=== PATIENT | female | born 1950 | race Caucasian/White ===

== ENCOUNTER 2021-08-07 07:51 | Outpatient (CLI) | payer MEDICARE, SELFPAY | END 2021-08-07 07:52 | disposition home or self-care (01) | LOC: ANHAUDIO 07:53 | PROVIDERS: PCP Family Medicine; Visit Provider Otolaryngology | DX: R42 Dizziness and giddiness (principal) | CPT/HCPCS: 92537; 92540; 92546; 92557; 92567 ==

== ENCOUNTER → 2021-10-10 03:22 | Outpatient (CLI) | payer MEDICARE, SELFPAY ==
[2021-10-15 22:48] LABS: SARS-CoV-2 RNA PCR Negative
== END ==
PROVIDERS: PCP Family Medicine; Visit Provider Family Medicine
DX: R50.9 Fever, unspecified (principal); Z20.822 Contact with and (suspected) exposure to COVID-19
CPT/HCPCS: C9803; U0003; U0005

== ENCOUNTER → 2021-11-05 15:17 | Outpatient (CLI) | payer MEDICARE, SELFPAY ==
--- NOTE | ~2021-11-05 | XR_ITS ---
EXAMINATION: XR lumbar spine min 4V DATE: 11/05/2021 16:11 INDICATION: Low back pain TECHNIQUE: Anteroposterior, lateral, and bilateral oblique views of the lumbar spine, and cone-down l ateral view of the lumbosacral junction were obtained. COMPARISON: None. FINDINGS: There is no fracture, dislocation, or subluxation. The vertebral body heights are maintaine d. There is mild loss of intervertebral disc space height at L4-5 and L5-S1. Small degenerative osteo phytes project from the anterior endplates of multiple vertebral bodies. There is mild facet osteoart hritis of the lower lumbar spine. Calcified atherosclerosis is noted. Surgical clips in the right upp er quadrant are likely from prior cholecystectomy. IMPRESSION: 1. Mild lumbar spondylosis without acute findings. Reviewed, dictated and finalized at location F. DIEM RN
--- NOTE | ~2021-11-05 | XR_ITS ---
EXAMINATION: XR hip BI 2V w AP pelvis DATE: 11/05/2021 16:11 INDICATION: Bilateral hip pain TECHNIQUE: AP view the pelvis and two views of each hip were obtained. COMPARISON: None. FINDINGS: Bone alignment is normal. There is no fracture. There is mild osteoarthritis of the hips. C alcified atherosclerosis is noted. IMPRESSION: 1. 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 Reviewed, dictated and finalized at location F. PLANNER
--- NOTE | ~2021-11-05 | XR_ITS ---
EXAMINATION: XR thoracic spine 3V DATE: 11/05/2021 16:11 INDICATION: Chronic thoracic back pain TECHNIQUE: AP, lateral and lateral swimmer's views of the thoracic spine were obtained. COMPARISON: None. FINDINGS: There is no fracture, dislocation, or subluxation. The vertebral body heights are normal. T here is mild loss of intervertebral disc space height in the midthoracic spine. Small degenerative os teophytes project from the anterior endplates of multiple vertebral bodies. Surgical clips are noted in the left neck. IMPRESSION: 1. Mild thoracic spondylosis without acute findings. Reviewed, dictated and finalized at location F. ATTENDANT
== END ==
PROVIDERS: PCP Family Medicine; Visit Provider Family Medicine
DX: M47.896 Other spondylosis, lumbar region (principal); M47.894 Other spondylosis, thoracic region; M16.0 Bilateral primary osteoarthritis of hip
CPT/HCPCS: 72072; 72110; 73521

== ENCOUNTER 2022-09-01 21:11 | Emergency (ER) | payer MEDICARE, SELFPAY ==
[2022-09-01] VITALS (11 sets, daily range): BP systolic 90–139; BP diastolic 30–65; PULSE 63–101; RESP 16–25; TEMP 36.2–36.7; O2SAT 83–98
--- NOTE | ~2022-09-01 | CT_ITS ---
EXAMINATION: CT abdomen pelvis wo con DATE: 09/01/2022 23:39 INDICATION: Diarrhea, nausea and vomiting TECHNIQUE: Computed tomography (CT) of the abdomen and pelvis was performed without intravenous contr ast. Automated exposure control and iterative reconstruction technique were employed. The dose-length product was 325.11 mGy-cm. COMPARISON: 09/24/2015 FINDINGS: Emphysema at the lung bases. Heart size is normal. Atherosclerotic coronary artery calcification. No pericardial or pleural effusion. Small sliding-type hiatal hernia. Cholecystectomy clips the gallblad angelica fossa. A few tiny splenic calcifications consistent with old granulomatous disease. Liver, pancre as, bilateral adrenal glands and kidneys are normal. There is moderate colonic diverticulosis with de scending and sigmoid colon predominance. There is no adjacent inflammatory change to suggest divertic ulitis. Fluid within multiple nondilated loops of small bowel and in the cecum. Normal appendix. Blad angelica is normal. The uterus is not identified and has likely been surgically resected. No free intraper itoneal gas or fluid. No pathologically enlarged abdominal or pelvic lymphadenopathy. There is calcif ied atherosclerosis of the aorta and many of the other arteries. Mild lumbar spondylosis. IMPRESSION: 1. Are nonspecific fluid in the cecum in a few nondilated loops of small bowel consistent with diarrh ea. Correlate for gastroenteritis. 2. Small sliding-type hiatal hernia. Reviewed, dictated and finalized at location A. ORT REPRESENTATIVE IMPRESSION: 1. Are nonspecific fluid in the cecum in a few nondilated loops of small bowel consistent with diarrhea. Correlate for gastroenteritis. 2. Small sliding-type hiatal hernia.
--- NOTE | 2022-09-01 22:15 | PC.NURSE ---
RN called pt. for triage x3. pt. using the bathroom during every triage
--- NOTE | 2022-09-01 22:18 | ECG_ITS ---
Measurements Intervals [place] Rate: 65 P: 65 IN: 171 QRS: 41 QRSD: 84 T: 61 QT: 390 QTc: 406 Interpretive Statements SINUS RHYTHM INCOMPLETE RIGHT BUNDLE BRANCH BLOCK BASELINE ARTIFACT- I, II, III, AVR, AVL, AVF BORDERLINE ECG NO PREVIOUS ECG AVAILABLE FOR COMPARISON Electronically Signed On 09-02-2022 6:50:00 HOME WORK[employer] by Manuelito Somers D.O.
--- NOTE | 2022-09-01 22:23 | ED.NAVMDI ---
HPI - Nausea/Vomiting/Diarrhea General Chief complaint: Nausea/Vomiting/Diarrhea <Jeanette Asencio PA-C - Last Filed: 09/02/22 03:08> Stated complaint: diarrhea and weakness <Jeanette Asencio PA-C - Last Filed: 09/02/22 03:08> Time Seen by Provider: 09/01/22 22:05 <Jeanette Asencio PA-C - Last Filed: 09/02/22 03:08> History of Present Illness HPI Narrative: Patient is a 72-year-old female here for evaluation of nausea, vomiting and nonbloody diarrhea for the last 2 hours. Patient states that she is unable to tolerate any p.o. and has been vomiting after every trial. Also notes about 10-15 episodes of vomiting nonbloody/nonbilious emesis. Denies any abdominal pain. No recent antibiotic use, new or suspicious foods, sick contacts. Patient states that she had a similar bout of illness about a month and a half without attributed to gastroenteritis, resolved without intervention. No chest pain, shortness of breath, fevers or chills. <Jeanette Asencio PA-C - Last Filed: 09/02/22 03:08> Related Data Allergies/Adverse reactions: Allergies Allergy/AdvReac Type Severity Reaction Status Date / Time KATRINA Inhibitors Allergy Severe WHEEZING Verified 09/01/22 23:38 atorvastatin Allergy Severe MUSCLE Verified 09/01/22 23:38 BREAKDOWN budesonide Allergy Severe BREATHING Verified 09/01/22 23:38 PROBLEMS ezetimibe Allergy Severe MUSCLE Verified 09/01/22 23:38 DETIORATION Iodinated Contrast Media Allergy Severe DIFFICULTY Verified 09/01/22 23:38 BREATHING sertraline Allergy Severe AGGITATION Verified 09/01/22 23:38 telithromycin Allergy Severe VISUAL Verified 09/01/22 23:38 DISTURBANCES ciprofloxacin Allergy Intermediate HIVES AND Verified 09/01/22 23:38 SWELLING doxazosin Allergy Intermediate CONFUSION, Verified 09/01/22 23:38 WHEEZING formoterol Allergy Intermediate BREATHING Verified 09/01/22 23:38 PROBLEMS, AND CONFUSION house dust Allergy Intermediate RUNNY NOSE Verified 09/01/22 23:38 DIFFICULTY BREATHING AND BITES hydrochlorothiazide Allergy Intermediate DIZZINESS Verified 09/01/22 23:38 ibuprofen Allergy Intermediate ELEVATES Verified 09/01/22 23:38 BLOOD PRESSURE montelukast Allergy Intermediate CONFUSION Verified 09/01/22 23:38 sulfamethoxazole Allergy Intermediate HIVES AND Verified 09/01/22 23:38 SWELLING trimethoprim Allergy Intermediate HIVES AND Verified 09/01/22 23:38 SWELLING cefuroxime Allergy Mild DIARRHEA Verified 09/01/22 23:38 sulfamethizole Allergy Unknown Unknown Verified 09/01/22 23:38 diazepam AdvReac Intermediate CONFUSION Verified 09/01/22 23:38 Wasp Allergy Severe SWELLING, Uncoded 10/16/21 08:53 BLISTERS AT THE SITE Cat Dander Allergy Mild RUNNY NOSE Uncoded 10/16/21 08:53 STEROIDS AdvReac Intermediate EYE Uncoded 10/16/21 08:53 SWELLING <Jeanette Asencio PA-C - Last Filed: 09/02/22 03:08> Review of Systems Review of Systems: Gen: Denies fevers or chills Eyes: Denies eye pain or visual change ENT: Denies congestion Respiratory: Denies shortness of breath or cough CV: Denies chest pain or palpitations GI: Reports nausea, vomiting and diarrhea. Denies abdominal pain : denies burning, urgency, frequency or hematuria Musculoskeletal: Denies back pain or muscle pain Neuro: Denies numbness, tingling, weakness or focal weakness Skin: Denies rash Except as documented, all other systems reviewed and negative <Jeanette Asencio PA-C - Last Filed: 09/02/22 03:08> [facility] Family History Family History: Family History (System 10/16/21 @ 08:53 by Neida Castellanos) Mother Hypertension Family history of malignant neoplasm Grandparent Hypertension Sibling Hypertension Family history of malignant neoplasm of skin Father Family history of heart disease in male family member before age 55 Other Family history of cardiovascular disease <Jeanette
[2022-09-01 22:37] LABS: Basophils Absolute Auto 0.1 K/mm3 (0.0-0.1); Basophils Percent Auto 0.5 % (0.2-1.2); Eosinophils Absolute Auto 0.2 K/mm3 (0-0.3); Eosinophils Percent Auto 1.6 % (0-4.4); Hematocrit 40.7 % (37.0-47.0); Hemoglobin 13.3 g/dL (12.0-15.0); Immature Granulocyte Absolute 0.04 K/mm3 (0.00-0.031); Immature Granulocyte Percent A 0.3 % (0-0.5); Lymphocytes Absolute Auto 1.27 K/mm3 (0.9-3.2); Lymphocytes Percent Auto 10.6 % (18.3-44.2); Mean Corpuscular HGB Conc 32.7 g/dl (32-36); Mean Corpuscular Hemoglobin 31.4 pg (26-34); Mean Corpuscular Volume 96.2 fl (80-100); Mean Platelet Volume 9.1 fl (7.4-10.4); Monocytes Absolute Auto 0.5 K/mm3 (0.1-0.6); Monocytes Percent Auto 3.7 % (2.6-8.5); Neutrophils Percent Auto 83.3 % (45.5-73.1); Platelet Count Result 350 k/mm3 (150-375); Red Blood Count 4.23 M/mm3 (4.2-5.4); Red Cell Distribution Width 12.7 % (11.5-14.5)
[2022-09-01] MEDS: SODIUM CHLORIDE 0.9% IV 1,000 ML 999 ML IV CONT ×2 (22:42→23:48)
[2022-09-01] MEDS: ONDANSETRON INJ 4 MG/2 ML VIAL IV PUSH (22:43)
[2022-09-01 22:51] LABS: Lactic Acid Reflex 2.3 mmol/L (0.7-2.0)
[2022-09-01 22:52] LABS: Alanine Aminotransferase 20 U/L (6-35); Albumin Level 4.4 g/dL (3.5-5.1); Alkaline Phosphatase 163 U/L (38-126); Anion Gap 17 mmol/L (8-16); Aspartate Amino Transferase 31 U/L (14-36); Bilirubin,Total 0.4 mg/dL (0.2-1.3); Blood Urea Nitrogen 13 mg/dL (7-17); Calcium 9.2 mg/dL (8.4-10.2); Carbon Dioxide 23 mmol/L (22-30); Chloride 95 mmol/L (98-107); Estimated Glomerular Filt Rate 44; Glucose 131 mg/dL (65-110); Lipase 116 U/L (23-300); Potassium 3.2 mmol/L (3.4-5.0); Sodium 135 mmol/L (137-145)
[2022-09-01] MEDS: POTASSIUM CHLORIDE 20 MEQ TABLET PO (23:44)
[2022-09-02] VITALS (15 sets, daily range): BP systolic 97–137; BP diastolic 46–61; PULSE 73–117; RESP 19–30; O2SAT 87–93
[2022-09-02 00:06] LABS: Influenza A QL RT-PCR Negative (Negative); Influenza B QL RT-PCR Negative (Negative); SARS-CoV-2 RNA PCR Negative
[2022-09-02 00:25] LABS: Add Urine Microscopic? YES; Appearance Urine Clear (Clear); Bilirubin Urine Negative (Negative); Blood Urine Negative (Negative); Color Urine Yellow (Yellow); Glucose Urine UA Negative (Negative); Ketones Urine Negative (Negative); Leukocyte Esterase Ur Negative LEU/UL (Negative); Nitrate Urine Negative (Negative); Protein Urine 1+ mg/dL (Negative); Specific Grav Ur 1.015 (1.001-1.035); Urobilinogen Urine 0.2 mg/dL (<2.0); pH Urine 6.5 (5.0-9.0)
[2022-09-02 00:36] LABS: Hyaline Casts Urine 15-19 /lpf; Mucus Urine Rare /lpf; RBC Urine 0-2 /hpf (0-2); Squamous Epithelial Cell Urine Rare /hpf (Few)
[2022-09-02 01:35] LABS: Reflex Lactic Acid Yes or No Add Lactic
[2022-09-02 01:49] LABS: Magnesium 1.6 mg/dL (1.6-2.3)
[2022-09-02 02:41] LABS: Lactic Acid Reflex 1.2 mmol/L (0.7-2.0)
== END 2022-09-02 03:03 | disposition home or self-care (01) ==
PROVIDERS: Physician Assistant; Emergency Provider Emergency Medicine; PCP Family Medicine
DX: K52.9 Noninfective gastroenteritis and colitis, unspecified (principal); Z20.822 Contact with and (suspected) exposure to COVID-19; F17.200 Nicotine dependence, unspecified, uncomplicated
CPT/HCPCS: 36415; 74176; 80053; 81001; 83605; 83690; 83735; 85025; 87502; 93005; 96361; 96374; 99284; A9270; J2405; J7030; U0003; U0005

== ENCOUNTER 2022-11-01 12:22 | Emergency (ER) | payer MEDICARE, SELFPAY ==
[2022-11-01 12:35] VITALS: BP 166/57; PULSE 84; RESP 16; TEMP 36.9; O2SAT 99
--- NOTE | 2022-11-01 12:47 | ED.URI ---
HPI - URI/Sore Throat General Chief Complaint: Upper Respiratory Infection Stated Complaint: EARS POPPING/SINUS CONGESITON/DRAINAGE Time Seen by Provider: 11/01/22 13:15 Source: patient and RN notes reviewed Mode of arrival: ambulatory Limitations: no limitations History of Present Illness HPI Narrative: 72-year-old female with history of COPD presents concern for 2 week history of sinus congestion, drainage, pressure, pain. She reports it feels like it is moving to her chest and flank is getting stuck in her throat. She reports she is unable to use her CPAP machine effectively. Reports using Flonase without relief. MD elicited complaint: cough, nasal congestion and sinus pain Related Data Home Medications Medication Instructions Recorded Confirmed amlodipine 5 mg tablet 5 mg PO DAILY 11/01/22 11/01/22 ergocalciferol (vitamin D2) 1,250 1,250 mcg PO DIRECTED 11/01/22 11/01/22 mcg (50,000 unit) capsule ezetimibe 10 mg tablet 10 mg PO DAILY 11/01/22 11/01/22 lansoprazole 15 mg capsule,delayed 15 mg PO DAILY 11/01/22 11/01/22 release levothyroxine 25 mcg tablet 25 mcg PO DAILY 11/01/22 11/01/22 montelukast 10 mg tablet 10 mg PO DAILY 11/01/22 11/01/22 telmisartan 80 mg tablet 80 mg PO DAILY 11/01/22 11/01/22 triamcinolone acetonide 0.1 % 1 applic topical DIRECTED 11/01/22 11/01/22 topical ointment Allergies Allergy/AdvReac Type Severity Reaction Status Date / Time KATRINA Inhibitors Allergy Severe WHEEZING Verified 11/01/22 13:00 atorvastatin Allergy Severe MUSCLE Verified 11/01/22 13:00 BREAKDOWN budesonide Allergy Severe BREATHING Verified 11/01/22 13:00 PROBLEMS ezetimibe Allergy Severe MUSCLE Verified 11/01/22 13:00 DETIORATION Iodinated Contrast Media Allergy Severe DIFFICULTY Verified 11/01/22 13:00 BREATHING sertraline Allergy Severe AGGITATION Verified 11/01/22 13:00 telithromycin Allergy Severe VISUAL Verified 11/01/22 13:00 DISTURBANCES ciprofloxacin Allergy Intermediate HIVES AND Verified 11/01/22 13:00 SWELLING doxazosin Allergy Intermediate CONFUSION, Verified 11/01/22 13:00 WHEEZING formoterol Allergy Intermediate BREATHING Verified 11/01/22 13:00 PROBLEMS, AND CONFUSION house dust Allergy Intermediate RUNNY NOSE Verified 11/01/22 13:00 DIFFICULTY BREATHING AND BITES hydrochlorothiazide Allergy Intermediate DIZZINESS Verified 11/01/22 13:00 ibuprofen Allergy Intermediate ELEVATES Verified 11/01/22 13:00 BLOOD PRESSURE montelukast Allergy Intermediate CONFUSION Verified 11/01/22 13:00 sulfamethoxazole Allergy Intermediate HIVES AND Verified 11/01/22 13:00 SWELLING trimethoprim Allergy Intermediate HIVES AND Verified 11/01/22 13:00 SWELLING cefuroxime Allergy Mild DIARRHEA Verified 11/01/22 13:00 sulfamethizole Allergy Unknown Unknown Verified 11/01/22 13:00 diazepam AdvReac Intermediate CONFUSION Verified 11/01/22 13:00 Wasp Allergy Severe SWELLING, Uncoded 11/01/22 13:00 BLISTERS AT THE SITE Cat Dander Allergy Mild RUNNY NOSE Uncoded 11/01/22 13:00 STEROIDS AdvReac Intermediate EYE Uncoded 11/01/22 13:00 SWELLING Review of Systems Review of Systems: CONSTITUTIONAL: Reports malaise. Denies chills, sweats, or fever. EYES: Denies visual changes, redness, or discharge. ENT: Reports rhinorrhea, congestion, sinus pain. Denies otalgia and sore throat. CARDIOVASCULAR: Denies chest pain, palpitations, or edema. RESPIRATORY: Reports cough. Denies dyspnea. GASTROINTESTINAL: Denies abdominal pain, nausea, vomiting, diarrhea SKIN: Denies rash or itching. MUSCULOSKELETAL: Denies myalgia. NEUROLOGIC: Denies headache. All systems reviewed & are unremarkable except as noted in HPI and below PMFSH Family History Family History (System 10/16/21 @ 08:53 by Neida Castellanos) Mother Hypertension Family history of malignant neoplasm Grandparent Hypertension Sibling Hypertension Family history of malignant
== END 2022-11-01 13:33 | disposition home or self-care (01) ==
PROVIDERS: Emergency Provider Nurse Practitioner; PCP Family Medicine
DX: J01.90 Acute sinusitis, unspecified (principal); F17.200 Nicotine dependence, unspecified, uncomplicated; J44.9 Chronic obstructive pulmonary disease, unspecified
CPT/HCPCS: 99213; G0463

== ENCOUNTER → 2022-12-30 12:35 | Outpatient (CLI) | payer MEDICARE, SELFPAY ==
--- NOTE | ~2022-12-30 | MM_ITS ---
EXAMINATION: MM screening [facility] BI w shara HISTORY: Screening mammogram TECHNIQUE: Craniocaudal and mediolateral oblique 3-D tomosynthesis images were obtained and synthetic 2-D images were generated. CAD analysis was submitted and interpreted. COMPARISON: 01/06/2019, 10/23/2017, 01/02/2008 BREAST PARENCHYMAL COMPOSITION: There are scattered areas of fibroglandular density. FINDINGS: No suspicious mass, calcification, or architectural distortion are identified in either oly ast to suggest malignancy. There has been no suspicious interval change. IMPRESSION: 1. No mammographic evidence of malignancy. 2. Recommend routine screening mammography in one year. BI-RADS Category 1: Negative Reviewed, dictated and finalized at location A. F OF ANESTHESIOLOGY
--- NOTE | ~2022-12-30 | DEXA_ITS ---
Bone Density Report Name: SINDY SANTOS Age: 72 Sex: Female Ethnicity: White Date of : 1950 Indication: osteopenia; parental hip fracture; height loss; prior fracture; hysterectomy; postmenopausal Referring Provider: NOEL EASLEY Study: Bone densitometry was performed. Exam Date: December 30, 2022 Accession number: [id number] Bone Density: Region BMD T-score Z-score Classification AP Spine (L1-L4) 0.769 -2.5 -0.3 Osteoporosis Femoral Neck (Left) 0.512 -3.0 -1.1 Osteoporosis Total Hip (Left) 0.665 -2.3 -0.6 Osteopenia Femoral Neck (Right) 0.591 -2.3 -0.4 Osteopenia Total Hip (Right) 0.648 -2.4 -0.8 Osteopenia Total Hip Mean 0.657 -2.4 -0.7 Osteopenia World Health Organization criteria for BMD impression classify patients as: Normal (T-score at or above -1.0), Osteopenia (T-score between -1.0 and -2.5), or Osteoporosis (T-score at or below -2.5). 10-year Fracture Risk: FRAX not reported because: Some T-score for Spine Total or Hip Total or Femoral Neck at or below -2.5 Prior hip or vertebral fracture Previous Exams: Region Exam Age BMD T-score BMD Change BMD Change Date g/cm2 vs Baseline vs Previous AP Spine(L1-L4) 12/30/2022 72 0.769 -2.5 -0.052* -0.052* 10/23/2017 67 0.821 -2.1 Total Hip(Left) 12/30/2022 72 0.665 -2.3 -0.076* -0.076* 10/23/2017 67 0.742 -1.6 Total Hip(Right) 12/30/2022 72 0.648 -2.4 -0.071* -0.071* 10/23/2017 67 0.720 -1.8 *Denotes significance at 95% confidence level, LSC for AP Spine = 0.022 g/cm2, LSC for Total Hip = 0.027 g/cm2 Clinical Information Provided by Patient: Have had a previous hip or vertebral fracture Has had a low trauma fracture Parent has had a hip fracture Smokes Has used the following medications: Vitamin D, Calcium, MTV Has the following medical conditions: Hysterectomy, asthma-no meds, COPD Patient maximum height was 62 Menopause Age: 53 No regular weight bearing exercise Does not regularly consume dairy products Drinks caffeinated beverages Onset of menses at age 18 Number of children 1 Impression: The patient has established osteoporosis, based on the Left Femoral Neck T-score and the existence of a prior fracture. The patient has risk factors, including: parental hip fracture, smoking, previous fracture. The BMD for the AP Spine(L1-L4) decreased, changing by -0.052 since the last DXA exam. The BMD for the Total Hip(Left) decr
== END ==
PROVIDERS: PCP Family Medicine; Visit Provider Obstetrics & Gynecology Gynecology
DX: Z12.31 Encounter for screening mammogram for malignant neoplasm of breast (principal); M85.88 Other specified disorders of bone density and structure, other site; Z78.0 Asymptomatic menopausal state; M81.0 Age-related osteoporosis without current pathological fracture; M85.852 Other specified disorders of bone density and structure, left thigh; M85.851 Other specified disorders of bone density and structure, right thigh
CPT/HCPCS: 77063; 77067; 77080

== ENCOUNTER 2023-11-15 09:33 | Emergency (ER) | payer MEDICARE, SELFPAY ==
[2023-11-15 09:43] VITALS: BP 168/67; PULSE 79; RESP 16; TEMP 37.1; O2SAT 98
[2023-11-15 09:45] VITALS: BP 168/67; PULSE 79; RESP 16; TEMP 37.1; O2SAT 98
--- NOTE | 2023-11-15 09:58 | ED.URI ---
HPI - URI/Sore Throat General Chief Complaint: Upper Respiratory Infection Stated Complaint: Sinus Infection Symptons Time Seen by Provider: 11/15/23 09:51 Source: patient and RN notes reviewed Mode of arrival: ambulatory Limitations: no limitations History of Present Illness HPI Narrative: Patient presents today requesting a change in an antibiotic. She has been having sinus symptoms with congestion and sinus pressure x4 days. 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 Patient states she is unable to take Augmentin due to diarrhea and reflux symptoms when she takes it, but states she is able to take plain amoxicillin. Due to impending bad weather, she does not want to wait till tomorrow to call her tank builder supervisor to have this changed, so she is requesting a prescription for amoxicillin be sent in for her today. Related Data Home Medications Medication Instructions Recorded Confirmed albuterol sulfate 90 mcg/actuation 1 inh inhalation Q4H PRN Shortness 01/26/23 11/15/23 aerosol inhaler Of Breath Or Wheezing famotidine 20 mg tablet 20 mg PO DAILY 01/26/23 11/15/23 Allergies Allergy/AdvReac Type Severity Reaction Status Date / Time KATRINA Inhibitors Allergy Severe WHEEZING Verified 11/15/23 09:43 atorvastatin Allergy Severe MUSCLE Verified 11/15/23 09:43 BREAKDOWN budesonide Allergy Severe BREATHING Verified 11/15/23 09:43 PROBLEMS ezetimibe Allergy Severe MUSCLE Verified 11/15/23 09:43 DETIORATION Iodinated Contrast Media Allergy Severe DIFFICULTY Verified 11/15/23 09:43 BREATHING prednisone Allergy Severe Anxiety Verified 11/15/23 09:43 sertraline Allergy Severe AGGITATION Verified 11/15/23 09:43 telithromycin Allergy Severe VISUAL Verified 11/15/23 09:43 DISTURBANCES venom-wasp Allergy Severe severe Verified 11/15/23 09:43 skin irritation ciprofloxacin Allergy Intermediate HIVES AND Verified 11/15/23 09:43 SWELLING doxazosin Allergy Intermediate CONFUSION, Verified 11/15/23 09:43 WHEEZING formoterol Allergy Intermediate BREATHING Verified 11/15/23 09:43 PROBLEMS, AND CONFUSION house dust Allergy Intermediate RUNNY NOSE Verified 11/15/23 09:43 DIFFICULTY BREATHING AND BITES hydrochlorothiazide Allergy Intermediate DIZZINESS Verified 11/15/23 09:43 ibuprofen Allergy Intermediate ELEVATES Verified 11/15/23 09:43 BLOOD PRESSURE montelukast Allergy Intermediate CONFUSION Verified 11/15/23 09:43 sulfamethoxazole Allergy Intermediate HIVES AND Verified 11/15/23 09:43 SWELLING trimethoprim Allergy Intermediate HIVES AND Verified 11/15/23 09:43 SWELLING cefuroxime Allergy Mild DIARRHEA Verified 11/15/23 09:43 cat dander Allergy Unknown Unknown Verified 11/15/23 09:43 grass pollen Allergy Unknown Unknown Verified 11/15/23 09:43 house dust mite Allergy Unknown Unknown Verified 11/15/23 09:43 mold Allergy Unknown Unknown Verified 11/15/23 09:43 sulfamethizole Allergy Unknown Unknown Verified 11/15/23 09:43 tree and shrub pollen Allergy Unknown Unknown Verified 11/15/23 09:43 diazepam AdvReac Intermediate CONFUSION Verified 11/15/23 09:43 Review of Systems Review of Systems: CONSTITUTIONAL: Denies body aches, fever, chills, or sweats. EYES: Denies visual changes, redness, or discharge. ENT: Denies rhinorrhea, sore throat, or otalgia.+ nasal congestion, sinus pressure CARDIOVASCULAR: Denies chest pain, palpitations, or edema. RESPIRATORY: Denies cough or dyspnea. GASTROINTESTINAL: Denies abdominal pain, nausea, vomiting, or diarrhea. GENITOURINARY: Denies dysuria or hematuria. SKIN: Denies rash, itching, or wounds. MUSCULOSKELETAL: Denies back pain, joint pain, or myalgia. NEUROLOGIC: Denies headache, numbness, tingling, or weakness. PSYCH: Denies depression or anxiety. [facility] Past Medical History Medical History (Reviewed 11/15/23 @ 1
== END 2023-11-15 10:04 | disposition home or self-care (01) ==
PROVIDERS: Emergency Provider Nurse Practitioner; PCP Student in an Organized Health Care Education/Training Program
DX: R09.81 Nasal congestion (principal); F17.210 Nicotine dependence, cigarettes, uncomplicated; M19.90 Unspecified osteoarthritis, unspecified site; J44.9 Chronic obstructive pulmonary disease, unspecified; I25.10 Atherosclerotic heart disease of native coronary artery without angina pectoris; M79.7 Fibromyalgia; K21.9 Gastro-esophageal reflux disease without esophagitis; I10 Essential (primary) hypertension; M81.0 Age-related osteoporosis without current pathological fracture; I73.9 Peripheral vascular disease, unspecified; Z86.73 Personal history of transient ischemic attack (TIA), and cerebral infarction without residual deficits; Z86.2 Personal history of diseases of the blood and blood-forming organs and certain disorders involving the immune mechanism; Z95.5 Presence of coronary angioplasty implant and graft
CPT/HCPCS: 99213; G0463

== ENCOUNTER 2024-05-12 15:14 | Outpatient (CLI) | payer MEDICARE, SELFPAY ==
--- NOTE | ~2024-05-12 | MM_ITS ---
EXAMINATION: MM screening [facility] BI w shara HISTORY: Screening TECHNIQUE: Craniocaudal and mediolateral oblique 3-D tomosynthesis images were obtained and synthetic 2-D images were generated. CAD analysis was submitted and interpreted. COMPARISON: Comparison to multiple prior studies sequentially, with oldest reviewed study dated 09/26. BREAST PARENCHYMAL COMPOSITION: Not dense: There are scattered areas of fibroglandular density. FINDINGS: There is no evidence of suspicious mass, calcification, or architectural distortion to sugg est malignancy in either breast. There has been no suspicious interval change. IMPRESSION: 1. No mammographic evidence of malignancy. 2. Recommend routine screening mammography in one year. BI-RADS Category 1: Negative Reviewed, dictated and finalized at location B.
== END 2024-05-12 15:15 ==
PROVIDERS: PCP Registered Nurse; Visit Provider Obstetrics & Gynecology Gynecology
DX: Z12.31 Encounter for screening mammogram for malignant neoplasm of breast (principal)
CPT/HCPCS: 77063; 77067

== ENCOUNTER 2024-07-31 11:01 | Emergency (ER) | payer MEDICARE, SELFPAY ==
[2024-07-31 11:32] VITALS: BP 171/58; PULSE 87; RESP 16; TEMP 37; O2SAT 97
--- NOTE | 2024-07-31 11:36 | ED.EAR ---
HPI - Ear Problem General Chief complaint: Ear Stated complaint: EARACHE/SINUS CONGESTION Source: patient Mode of arrival: ambulatory Limitations: no limitations History of Present Illness HPI Narrative: Patient presents for evaluation of right-sided ear pain. She indicates over the last week she has experience sinus congestion, clear rhinorrhea, and a sandpaper throat . No fever, chills, nausea, vomiting, diarrhea. No recent sick contacts to her knowledge. She is not taking any medication to assist with her symptoms. She smokes 3/4 ppd. Related Data Home Medications Medication Instructions Recorded Confirmed albuterol sulfate 90 mcg/actuation 1 inh inhalation Q4H PRN Shortness 01/26/23 07/31/24 aerosol inhaler Of Breath Or Wheezing famotidine 20 mg tablet 20 mg PO DAILY 01/26/23 06/01/24 montelukast 10 mg tablet 10 mg PO DAILY 05/11/24 07/31/24 Allergies Allergy/AdvReac Type Severity Reaction Status Date / Time KATRINA Inhibitors Allergy Severe WHEEZING Verified 07/31/24 11:45 atorvastatin Allergy Severe MUSCLE Verified 07/31/24 11:45 BREAKDOWN budesonide Allergy Severe BREATHING Verified 07/31/24 11:45 PROBLEMS ezetimibe Allergy Severe MUSCLE Verified 07/31/24 11:45 DETIORATION Iodinated Contrast Media Allergy Severe DIFFICULTY Verified 07/31/24 11:45 BREATHING prednisone Allergy Severe Anxiety Verified 07/31/24 11:45 sertraline Allergy Severe AGGITATION Verified 07/31/24 11:45 telithromycin Allergy Severe VISUAL Verified 07/31/24 11:45 DISTURBANCES venom-wasp Allergy Severe severe Verified 07/31/24 11:45 skin irritation ciprofloxacin Allergy Intermediate HIVES AND Verified 07/31/24 11:45 SWELLING doxazosin Allergy Intermediate CONFUSION, Verified 07/31/24 11:45 WHEEZING formoterol Allergy Intermediate BREATHING Verified 07/31/24 11:45 PROBLEMS, AND CONFUSION house dust Allergy Intermediate RUNNY NOSE Verified 07/31/24 11:45 DIFFICULTY BREATHING AND BITES hydrochlorothiazide Allergy Intermediate DIZZINESS Verified 07/31/24 11:45 ibuprofen Allergy Intermediate ELEVATES Verified 07/31/24 11:45 BLOOD PRESSURE montelukast Allergy Intermediate CONFUSION Verified 07/31/24 11:45 sulfamethoxazole Allergy Intermediate HIVES AND Verified 07/31/24 11:45 SWELLING trimethoprim Allergy Intermediate HIVES AND Verified 07/31/24 11:45 SWELLING cefuroxime Allergy Mild DIARRHEA Verified 07/31/24 11:45 cat dander Allergy Unknown Unknown Verified 07/31/24 11:45 grass pollen Allergy Unknown Unknown Verified 07/31/24 11:45 house dust mite Allergy Unknown Unknown Verified 07/31/24 11:45 mold Allergy Unknown Unknown Verified 07/31/24 11:45 sulfamethizole Allergy Unknown Unknown Verified 07/31/24 11:45 tree and shrub pollen Allergy Unknown Unknown Verified 07/31/24 11:45 amoxicillin [From Augmentin] Allergy Other Verified 07/31/24 11:45 clavulanic acid Allergy Other Verified 07/31/24 11:45 [From Augmentin] diazepam AdvReac Intermediate CONFUSION Verified 07/31/24 11:45 Review of Systems Review of Systems: CONSTITUTIONAL: Denies fever, chills, or sweats. EYES: Denies visual changes, redness, or discharge. ENT: Reports right-sided otalgia, sinus congestion, clear rhinorrhea, and sandpaper throat CARDIOVASCULAR: Denies chest pain, palpitations, or edema. RESPIRATORY: Denies cough or dyspnea. GASTROINTESTINAL: Denies abdominal pain, nausea, vomiting, or diarrhea. GENITOURINARY: Denies dysuria or hematuria. SKIN: Denies rash or itching. MUSCULOSKELETAL: Denies back pain, joint pain, or myalgia. NEUROLOGIC: Denies headache, numbness, dizziness, or weakness. PSYCHIATRIC: Denies anxiety or depression. [facility] Past Medical History Medical History Allergies Anxiety Arthritis Asthma CAD (coronary artery disease) COPD (chronic obstructive pulmonary disease) Crohn's colitis Deg
== END 2024-07-31 12:50 | disposition home or self-care (01) ==
PROVIDERS: Emergency Provider Nurse Practitioner; PCP Family Medicine
DX: H66.91 Otitis media, unspecified, right ear (principal); F17.210 Nicotine dependence, cigarettes, uncomplicated; M19.90 Unspecified osteoarthritis, unspecified site; I25.10 Atherosclerotic heart disease of native coronary artery without angina pectoris; J44.9 Chronic obstructive pulmonary disease, unspecified; K50.90 Crohn's disease, unspecified, without complications; I10 Essential (primary) hypertension; M81.0 Age-related osteoporosis without current pathological fracture; I73.9 Peripheral vascular disease, unspecified; Z86.73 Personal history of transient ischemic attack (TIA), and cerebral infarction without residual deficits; Z95.5 Presence of coronary angioplasty implant and graft
CPT/HCPCS: 99213; G0463

== ENCOUNTER 2025-04-09 10:57 | Emergency (ER) | payer MEDICARE, SELFPAY ==
--- NOTE | ~2025-04-09 | XR_ITS ---
Left ankle Technique: AP, oblique, and lateral views were obtained. Clinical History: Pain Findings: No acute fracture or dislocation is seen. Osseous alignment is anatomic. Ankle mortise and other visualized joint spaces are preserved. Soft tissues are otherwise unremarkable. Impression: Unremarkable left ankle. Reviewed, dictated and finalized at location . Impression: Unremarkable left ankle.
--- NOTE | 2025-04-09 11:02 | ED.LOWEXIN ---
HPI - Extremity Injury (Lower) General Chief Complaint: Extremity Injury, Lower Stated Complaint: Left Ankle Injury Time Seen by Provider: 04/09/25 11:03 Source: patient Mode of arrival: ambulatory Limitations: no limitations History of Present Illness HPI Narrative: April is a 75-year-old female patient presenting to the clinic today with complaints of a left ankle injury that occurred yesterday. States she dropped a metal/glass pot lid on her left ankle yesterday. Took Tylenol and applied ice to the area to help alleviate pain. The pain currently a 2/10. States pain is worse when she is going down steps. Related Data Home Medications ?Medication ?Instructions ?Recorded ?Confirmed ?Last Taken ?Type albuterol sulfate 90 mcg/actuation 1 inh inhalation Q4H PRN Shortness 01/26/23 12/19/24 Unknown History aerosol inhaler Of Breath Or Wheezing montelukast 10 mg tablet 10 mg PO DAILY 05/11/24 04/09/25 Unknown History acetaminophen-pamabrom 500 mg-25 1 tablet PO ONCE 12/19/24 12/19/24 Unknown History mg tablet Allergies Allergy/AdvReac Type Severity Reaction Status Date / Time KATRINA Inhibitors Allergy Severe WHEEZING Verified 04/09/25 11:09 atorvastatin Allergy Severe MUSCLE Verified 04/09/25 11:09 BREAKDOWN budesonide Allergy Severe BREATHING Verified 04/09/25 11:09 PROBLEMS ezetimibe Allergy Severe MUSCLE Verified 04/09/25 11:09 DETIORATION Iodinated Contrast Media Allergy Severe DIFFICULTY Verified 04/09/25 11:09 BREATHING prednisone Allergy Severe Anxiety Verified 04/09/25 11:09 sertraline Allergy Severe AGGITATION Verified 04/09/25 11:09 telithromycin Allergy Severe VISUAL Verified 04/09/25 11:09 DISTURBANCES venom-wasp Allergy Severe severe Verified 04/09/25 11:09 skin irritation ciprofloxacin Allergy Intermediate HIVES AND Verified 04/09/25 11:09 SWELLING doxazosin Allergy Intermediate CONFUSION, Verified 04/09/25 11:09 WHEEZING formoterol Allergy Intermediate BREATHING Verified 04/09/25 11:09 PROBLEMS, AND CONFUSION house dust Allergy Intermediate RUNNY NOSE Verified 04/09/25 11:09 DIFFICULTY BREATHING AND BITES hydrochlorothiazide Allergy Intermediate DIZZINESS Verified 04/09/25 11:09 ibuprofen Allergy Intermediate ELEVATES Verified 04/09/25 11:09 BLOOD PRESSURE montelukast Allergy Intermediate CONFUSION Verified 04/09/25 11:09 sulfamethoxazole Allergy Intermediate HIVES AND Verified 04/09/25 11:09 SWELLING trimethoprim Allergy Intermediate HIVES AND Verified 04/09/25 11:09 SWELLING cefuroxime Allergy Mild DIARRHEA Verified 04/09/25 11:09 cat dander Allergy Unknown Unknown Verified 04/09/25 11:09 grass pollen Allergy Unknown Unknown Verified 04/09/25 11:09 house dust mite Allergy Unknown Unknown Verified 04/09/25 11:09 mold Allergy Unknown Unknown Verified 04/09/25 11:09 sulfamethizole Allergy Unknown Unknown Verified 04/09/25 11:09 tree and shrub pollen Allergy Unknown Unknown Verified 04/09/25 11:09 amoxicillin (From Augmentin) Allergy Other Verified 04/09/25 11:09 clavulanic acid (From Allergy Other Verified 04/09/25 11:09 Augmentin) doxycycline AdvReac Severe Nausea Verified 04/09/25 11:09 diazepam AdvReac Intermediate CONFUSION Verified 04/09/25 11:09 Review of Systems Review of Systems: Pertinent positives per HPI. Patient denies any fever, chills, rash, headache, visual changes, dizziness, cough, runny nose, sore throat, shortness of breath, chest pain, palpitations, nausea, vomiting, diarrhea, constipation, abdominal pain, or any urinary issues. [facility] Past Medical History Medical History Carotid artery stenosis PAD (peripheral artery disease) Degenerative disc disease Sleep apnea Polymyalgia Fibromyalgia Thyroid disorder Stroke Osteoporosis IBS (irritable bowel syndrome) Hypertension GERD (gastroesophageal reflux disease) Crohn's colitis COPD (chronic obstructive pulmonary disease) CAD (coronary artery disease) History of blood clots Arthritis Anxiety Asthma Allergies Surgical History Surgical History History of heart artery stent 2020 History of endarterectomy 2015 History of cholecystectomy 1999 History of hysterectomy 1998 Family History Family History Mother Hypertension Family history of malignant neoplasm Alcoholism Cancer Depression Cerebrovascular accident Thyroid disorder Grandparent Hypertension Alcoholism Heart disease Sibling Hypertension Family history of malignant neoplasm of skin Alcoholism Cancer Depression Thyroid disorder Father Family history of heart disease in male family member before age 55 Alcoholism Asthma Depression Heart disease Cerebrovascular accident Sibling Alcoholism Cancer Depression Other Hypertension Son Depression Other Family history of cardiovascular disease Social History Social History Smoking packs per day: 0.75 Smoking cigarettes per day: 15.0 Smoking status: Current every day smoker Alcohol intake: never Substance use type: does not use Do You Feel Safe in your Home?: Yes Lack of Transportation: No Lack of Food: Never True Current Housing: I Have Housing Concerned About Future Housing: No Difficulty Paying Gas/Electric Bills: No Difficulty Paying for Meds: No Currently Unemployed: No Education: Bachelor's Degree Difficulty w/ Childcare or Family Care: No Living arrangements: with family Additional occupation/education comments: disabled Gender identity (if verbalized by the patient): Female Comments At the time of my signature, I reviewed and agree with the nursing past medical, surgical, social, and family history. There is no relevant family history pertinent to the patient complaint. Exam Narrative: General: Well-developed, well nourished, in no apparent distress Head: Normocephalic, atraumatic. Cardio: Regular rate and rhythm, s1 and s2 normal, no murmur appreciated. Resp: Clear to auscultation bilaterally, no rhonchi, rales, wheezing or rubs. Musculoskeletal: No deformity, no bruising or swelling noted, tender to palpation to the anterior dorsal ankle/distal tib-fib, grossly normal range of motion, muscle strength strong and equal, peripheral pulse strong, no edema, no cyanosis, normal gait and station Course Course Emergency Course: Portions of this record may have been created with voice recognition software. Level of Care: Express Care Visit Vital Signs Vital signs: Vital Signs Temperature 36.8 C 04/09/25 11:05 Pulse Rate 87 04/09/25 11:05 Respiratory Rate 20 04/09/25 11:05 Blood Pressure 190/63 H 04/09/25 11:05 Pulse Oximetry 97 04/09/25 11:05 Oxygen Delivery Room Air 04/09/25 11:05 Temperature 36.8 C 04/09/25 11:05 Pulse Rate 87 04/09/25 11:05 Respiratory Rate 20 04/09/25 11:05 Blood Pressure 190/63 H 04/09/25 11:05 Pulse Oximetry 97 04/09/25 11:05 Oxygen Delivery Room Air 04/09/25 11:05 Vital signs reviewed MDM - Extremity Injury (Lower) MDM Narrative Medical decision making narrative: At the time of visit patient is resting comfortably on the exam table. Patient appears to be nontoxic. Patient requesting x-ray as she has a history of osteoporosis and has physical therapy tomorrow. Diagnostics: X-ray of the left ankle was performed and was negative for any fracture or malalignment. Plan: I suspect patient has a left ankle contusion. Supportive measures were discussed with the patient and they voiced understanding discharge instructions and agrees to treatment plan. Return precautions reviewed Differential Diagnosis Differential diagnosis: Likely ankle sprain and strain, ankle fracture and other (Ankle contusion, soft tissue injury) Imaging Data Radiologist's impression: ITS Impressions Ankle X-Ray 04/09/25 11:36 Impression: Unremarkable left ankle. Discharge Plan Discharge Clinical Impression: Ankle contusion Qualifiers: Encounter type: initial encounter Laterality: left Qualified Code(s): S90.02XA - Contusion of left ankle, initial encounter Patient Disposition: Home Condition: Stable Instructions: Antibiotic Form, Contusion in Adults (ED) Additional Instructions: X-ray of the left ankle is negative for any sign of fracture or malalignment. Rest, ice, and elevate May take Tylenol for pain as discussed. Follow up with your PCP if symptoms persist more than 1 week. Patient Language: Japanese Prescriptions: No Action albuterol sulfate 90 mcg/actuation HFA aerosol inhaler 1 inh inhalation Q4H PRN (Reason: Shortness Of Breath Or Wheezing) montelukast 10 mg tablet 10 mg PO DAILY acetaminophen-pamabrom 500-25 mg tablet 1 tablet PO ONCE ipratropium-albuterol 0.5 mg-3 mg(2.5 mg base)/3 mL solution for nebulization 3 ml inhalation Q6H PRN (Reason: shortness of breath or wheezing) Qty: 90 0RF telmisartan 40 mg tablet 40 mg PO DAILY Qty: 90 3RF telmisartan 80 mg tablet 80 mg PO DAILY Qty: 90 3RF amlodipine 5 mg tablet See Rx Instructions .ROUTE .COMPLEX Qty: 60 6RF Dose Instruction: Take 1 tablet by mouth twice daily Rx Instructions: Take 1 tablet by mouth twice daily Follow-up/Referrals: Rufus Dougherty MD [Primary Care Provider] - Time of Disposition: 11:38 Quality NIHSS Nursing Documentation ED NIHSS nursing documentation: reviewed/agree
[2025-04-09 11:05] VITALS: BP 190/63; PULSE 87; RESP 20; TEMP 36.8; O2SAT 97
== END 2025-04-09 11:43 | disposition home or self-care (01) ==
PROVIDERS: Emergency Provider Nurse Practitioner Family; PCP Family Medicine
DX: S90.02XA Contusion of left ankle, initial encounter (principal); W20.8XXA Other cause of strike by thrown, projected or falling object, initial encounter; F17.210 Nicotine dependence, cigarettes, uncomplicated; I73.9 Peripheral vascular disease, unspecified; M79.7 Fibromyalgia; M81.0 Age-related osteoporosis without current pathological fracture; I10 Essential (primary) hypertension; K21.9 Gastro-esophageal reflux disease without esophagitis; K50.90 Crohn's disease, unspecified, without complications; J44.9 Chronic obstructive pulmonary disease, unspecified; I25.10 Atherosclerotic heart disease of native coronary artery without angina pectoris; M19.90 Unspecified osteoarthritis, unspecified site; J45.909 Unspecified asthma, uncomplicated; Z95.5 Presence of coronary angioplasty implant and graft
CPT/HCPCS: 73610; 99213; G0463

== ENCOUNTER 2025-07-14 15:13 | Outpatient (CLI) | payer MEDICARE, SELFPAY ==
--- NOTE | ~2025-07-14 | XR_ITS ---
EXAMINATION: XR chest 2V, 07/14/2025 15:30 CDT HISTORY: Z01.818 - Encounter for other preprocedural examination COMPARISON: No comparisons available. Technique: 2 views obtained. Findings: COPD changes otherwise the lungs are clear No pneumothorax. Heart is normal size. Mediastinal and hilar contours are within normal limits. Bony thorax no acute abnormality. Impression: No acute cardiopulmonary abnormality. Reviewed, dictated and finalized at location A. Impression: No acute cardiopulmonary abnormality.
--- OUTSIDE RECORDS SUMMARY | 2025-07-14 15:18 | XMS_ITS | Encounter Summary ---
Author Organization [facility] Address [address], [place] [address] Phone Care Team Providers Care Cube Cutter Name Role Phone El Gomes MD Primary Care Provider [phone] Reason for Visit * Reason Comments Med Refill Encounter Details Date Type Department Care Team (Late st Contact Info) Description 03/09/2022 Refill [facility] Nephrology and Hypertension [address] [facility], [address] [place] [address] Hoang Sanderson MD [address] [facility], [address] [place] [address] Social History Tobacco Use Types Packs/Day Years Used Date Smoking Tobacco: Every Day Smokeless Tobacco: Never Alcohol Use Standard Drinks/Week Comments No 0 (1 standard drink = 0.6 oz pur e alcohol) Comments Unknown Sex and Gender Information Value Date Recorded Sex Assigned at Not on file Legal Sex Female 8:28 AM [facility] Gender Identity Not on file Sexual Orientation Not on file documented as of this encounter Plan of Treatment Not on file documented as of this encounter Visit Diagnoses Not on filedocumented in this encounter Care Teams Cube Cutter Relationship Specialty Start Date End Date El Gomes MD PCP - General Internal Medicine 02/20/21 documented as of this encounter
--- OUTSIDE RECORDS SUMMARY | 2025-07-14 15:18 | XMS_ITS | Encounter Summary ---
Author Organization [facility] Address [address] [address] Phone Care Team Providers Care Fur Pointer Name Role Phone El Gomes MD Primary Care Provider [phone] Encounter Details Date Type Department Care Team (Late st Contact Info) Description 12/31/2020 [facility] Nephrology and Hypertension [facility] [facility], [address] [place] [id number] Hoang Sanderson MD [address] [facility], [address] [facility] [place] [address] Social History Tobacco Use Types Packs/Day Years Used Date Smoking Tobacco: Every Day Smokeless Tobacco: Never Alcohol Use Standard Drinks/Week Comments No 0 (1 standard drink = 0.6 oz pur e alcohol) Comments Unknown Sex and Gender Information Value Date Recorded Sex Assigned at Not on file Legal Sex Female 8:28 AM [facility] Gender Identity Not on file Sexual Orientation Not on file documented as of this encounter Miscellaneous Notes * Telephone Encounter - Verona Penaloza - 12/31/2020 3:45 PM CST spk w/ pt - relayed info - will p/u rx sree * Telephone Encounter - Hoang Sanderson MD - 12/31/2020 3:21 PM CST Done documented in this encounter Plan of Treatment Not on file documented as of this encounter Visit Diagnoses Not on filedocumented in this encounter Care Teams Fur Pointer Relationship Specialty Start Date End Date El Gomes MD PCP - General Internal Medicine 02/20/21 documented as of this encounter
--- OUTSIDE RECORDS SUMMARY | 2025-07-14 15:18 | XMS_ITS | Encounter Summary ---
Author Organization [facility] Address [facility] [place] [address] Care Team Providers Care Tele Tech Name Role Phone Rufus Dougherty MD Primary Care Provider [phone] Encounter Details Date Type Department Care Team (Late st Contact Info) Description 03/07/2025 [facility] [place] [address] Torito Acosta MA Social History Tobacco Use Types Packs/Day Years Used Date Smoking Tobacco: Every Day Cigarettes 1 62.2 Started: 05/03/1963 Passive Smoke Exposure: Current Smokeless Tobacco: Never Alcohol Use Standard Drinks/Week Comments Never 0 (1 standard drink = 0.6 oz pur e alcohol) B1300 Health Literacy Answer Date Recor ded How often do you need to hav e someone help you when you read instructions, pamphlets, or other written material from your doctor or pharmacy? Never 04/23/2024 [facility] Utilities Answer Date Recorded In the past 12 months has [facility] [employer], [employer], or water [employer] threatened to shut off services in your home? No 04/23/2024 Humiliation, Afraid, Rape, and Kick questionnair e Answer Date Recorded Within the last year, have y ou been afraid of your partner or ex-partner? Patient declined 04/23/2024 Within the last year, have y ou been humiliated or emotionally abused in other ways by your partner or ex-partner? Patient declined 04/23/2024 Within the last year, have y ou been kicked, hit, slapped, or otherwise physically hurt by your partner or ex-partner? Patient declined 04/23/2024 Within the last year, have y ou been raped or forced to have any kind of sexual activity by your partner or ex-partner? Patient declined 04/23/2024 Social Connection and Isolat ion Panel [NHANES] Answer Date Recorded In a typical week, how many times do you talk on the phone with family, friends, or neighbors? More than three times a week 04/23/2024 How often do you get togethe r with friends or relatives? Three times a week 04/23/2024 How often do you attend chur ch or denominational services? Never 04/23/2024 Do you belong to any clubs o r organizations such as jain groups, unions, fraternal or athletic groups, or school groups? No 04/23/2024 How often do you attend meet ings of the clubs or organizations you belong to? Patient declined 04/23/2024 Are you , , di vorced, , never , or living with a partner? Patient declined 04/23/2024 AUDIT-C Answer Date Recorded Q1: How often do you have a drink containing alcohol? Never 04/23/2024 Q2: How many drinks containi ng alcohol do you have on a typical day when you are drinking? Patient does not drink Q3: How often do you have si x or more drinks on one occasion? Never 04/23/2024 Overall Financial Resource Strain (CARDIA) Answe r Date Recorded How hard is it for you to pa y for the very basics like food, housing, medical care, and heating? Not hard at all 04/23/2024 PHQ-2 Answer Date Recorded Patient Health Questionnaire-2 Score 2 11/24/2023 [facility] - Occupational Stress Questionnaire Answer Date Recorded Do you feel stress - tense, restless, nervous, or anxious, or unable to sleep at night because your mind is troubled all the time - these days? To some extent 04/23/2024 Exercise Vital Sign Answer Date Recorde d Days of Exercise per Week Not on file 2022 On average, how many minutes do you engage in exercise at this level? Patient declined 05/03/2023 Hunger Vital Sign Answer Date Recorded Within the past 12 months, y ou worried that your food would run out before you got the money to buy more. Never true 04/23/20 24 Within the past 12 months, t he food you bought just didn't last and you didn't have money to get more. Never true 04/23/2024 PRAPARE - Transportation Answer Date Re corded In the past 12 months, has l ack of transportation kept you from medical appointments or from getting medications? No 03/27 In the past 12 months, has l ack of transportation kept you from meetings, work, or from getting things needed for daily living? No 04/23/2024 Housing Stability Vital Sign Answer Gabriele e Recorded In the last 12 months, was t here a time when you were not able to pay the mortgage or rent on time? Patient refused 05/03/20 23 In the last 12 months, how many places have you lived? 1 05/03/2023 In the last 12 months, was t here a time when you did not have a steady place to sleep or slept in a fpc (including now)? Patient refused 05/03/2023 Housing Stability Vital Sign Answer Gabriele e Recorded In the last 12 months, was t here a time when you were not able to pay the mortgage or rent on time? No 04/23/2024 In the past 12 months, how m any times have you moved where you were living? 0 04/23/2024 At any time in the past 12 m [facility], were you homeless or living in a fpc (including now)? No 04/23/2024 Comments No Sex and Gender Information Value Date Recorded Sex Assigned at Not on file Legal Sex Female 7:37 PM CDT Gender Identity Not on file Sexual Orientation Not on file documented as of this encounter Functional Status * Are you deaf or do you have serious difficulty hearing Answer Date of Assessment Author Status No 04/23/2024 4:00 PM AJITT Lesli Bernstein RN A ctive * Are you blind or do you have serious difficulty seeing, even when wearing glasses? Answer Date of Assessment Author Status No 04/23/2024 4:00 PM AJITT Lesli Bernstein RN A ctive * Do you have serious difficulty walking or climbing stairs? Answer Date of Assessment Author Status No 04/23/2024 4:00 PM AJITT Bernstein, An T, RN A ctive * Do you have difficulty dressing or bathing? Answer Date of Assessment Author Status No 04/23/2024 4:00 PM CDT Lesli Bernstein, RN A ctive * Because of a physical, mental, or emotional condition, do you have difficulty doing errands alone such as visiting a doctor's office or shopping? Answer Date of Assessment Author Status No 04/23/2024 4:00 PM CDLesli Gonzalez RN A ctive documented as of this encounter Mental Status * Because of a physical, mental, or emotional condition, do you have serious difficulty concentrating, remembering, or making decisions? Answer Entry Date Author Status No 04/23/2024 4:00 PM CDT Lesli Bernstein, RN A ctive documented in this encounter Plan of Treatment Upcoming Encounters Date Type Department Care Team (Late st Contact Info) Description 09/13/2025 1:30 PM [facility] Office Visit [facility] [address] [place], [place] [id number] Vilma Moore FNP [address] [facility] [address] [place], [place] [id number] documented as of this encounter Goals Goal Patient Goal Type Associated Problems Recent Progress Patient-Stated? Author Family - family caregiver with be involved in care transitions and discharge planning Lifestyle No Rashmi Melendez, COMMUNITY CULTURAL DEVELOPMENT OFFICER documented as of this encounter Procedures Procedure Name Priority Date/Time Associated Diagnosis Comments COMPREHENSIVE METABOLIC PANEL Routine 03/02/2025 documented in this encounter Results * COMPREHENSIVE METABOLIC PANEL (03/02/2025) SODIUM S/P/B 136 GLUCOSE 89 mg/dL BUN 18 CREATININE S/P/B 0.99 0.5 - 1.0 CALCIUM S/P/B 9.1 POTASSIUM S/P/B 4.4 CHLORIDE S/P/B 99 GFR ESTIMATE 60 us Default History Genericprovider LABORATORY Edited Result - Final documented in this encounter Visit Diagnoses Not on filedocumented in this encounter Care Teams Tele Tech Relationship Specialty Start Date End Date Rufus Dougherty MD [address] [place] [address] PCP - General FAMILY PRACTICE 12/20/24 documented as of this encounter
--- OUTSIDE RECORDS SUMMARY | 2025-07-14 15:18 | XMS_ITS | Encounter Summary ---
Author Organization [facility] Address [facility] [place] [address] Care Team Providers Care Overseamer Name Role Phone Mira Vazquez Primary Care Provider [phone] Linus Denise MD Primary Care Provider [phone] Rufus Dougherty MD Primary Care Provider Encounter Details Date Type Department Care Team (Late st Contact Info) Description 03/08/2024 Abstract [facility] [address] Torito Acosta [place] Social History Tobacco Use Types Packs/Day Years Used Date Smoking Tobacco: Every Day Cigarettes Passive Smoke Exposure: Current Smokeless Tobacco: Never Alcohol Use Standard Drinks/Week Comments Never 0 (1 standard drink = 0.6 oz pur e alcohol) Humiliation, Afraid, Rape, and Kick questionnair e Answer Date Recorded Within the last year, have y ou been afraid of your partner or ex-partner? Patient declined 05/03/2023 Within the last year, have y ou been humiliated or emotionally abused in other ways by your partner or ex-partner? Patient declined 05/03/2023 Within the last year, have y ou been kicked, hit, slapped, or otherwise physically hurt by your partner or ex-partner? Patient declined 05/03/2023 Within the last year, have y ou been raped or forced to have any kind of sexual activity by your partner or ex-partner? Patient declined 05/03/2023 Social Connection and Isolation Panel [NHANES] A nswer Date Recorded In a typical week, how many times do you talk on the phone with family, friends, or neighbors? Patient declined 05/03/2023 How often do you get togethe r with friends or relatives? Patient declined 05/03/2023 How often do you attend mormonism or taoism serv ices? Patient declined 05/03/2023 Do you belong to any clubs o r organizations such as mormonism groups, unions, fraternal or athletic groups, or school groups? Patient declined 05/03/2023 How often do you attend meet ings of the clubs or organizations you belong to? Patient declined 05/03/2023 Are you , , di vorced, , never , or living with a partner? Patient declined 05/03/2023 AUDIT-C Answer Date Recorded Q1: How often do you have a drink containing alc ohol? Patient declined 05/03/2023 Q2: How many drinks containi ng alcohol do you have on a typical day when you are drinking? Patient declined 05/03/2023 Q3: How often do you have si x or more drinks on one occasion? Patient declined 05/03/2023 Overall Financial Resource Strain (CARDIA) Answe r Date Recorded How hard is it for you to pa y for the very basics like food, housing, medical care, and heating? Patient declined 05/03/2023 PHQ-2 Answer Date Recorded Patient Health Questionnaire-2 Score 2 11/24/2023 [facility] - Occupational Stress Questionnaire Answer Date Recorded Do you feel stress - tense, restless, nervous, or anxious, or unable to sleep at night because your mind is troubled all the time - these days? Patient declined 05/03/2023 Exercise Vital Sign Answer Date Recorde d Days of Exercise per Week Not on file 2022 On average, how many minutes do you engage in exercise at this level? Patient declined 05/03/2023 Hunger Vital Sign Answer Date Recorded Within the past 12 months, y ou worried that your food would run out before you got the money to buy more. Patient declined Within the past 12 months, t he food you bought just didn't last and you didn't have money to get more. Patient declined 06/2023 PRAPARE - Transportation Answer Date Re corded In the past 12 months, has l ack of transportation kept you from medical appointments or from getting medications? Patient declined 05/03/2023 In the past 12 months, has l ack of transportation kept you from meetings, work, or from getting things needed for daily living? Patient declined 05/03/2023 Housing Stability Vital Sign Answer Gabriele [...] place to sleep or slept in a mcc (including now)? Patient refused 05/03/2023 Comments No Sex and Gender Information Value Date Recorded Sex Assigned at Not on file Legal Sex Female 7:37 PM CDT Gender Identity Not on file Sexual Orientation Not on file documented as of this encounter Functional Status * Are you deaf or do you have serious difficulty hearing Answer Date of Assessment Author Status No 05/03/2023 6:00 PM AJITT Genevieve Higuera RN Active * Are you blind or do you have serious difficulty seeing, even when wearing glasses? Answer Date of Assessment Author Status No 05/03/2023 6:00 PM Genevieve Mahajan RN Active * Do you have serious difficulty walking or climbing stairs? Answer Date of Assessment Author Status No 05/03/2023 6:00 PM Genevieve Mahajan RN Active * Do you have difficulty dressing or bathing? Answer Date of Assessment Author Status No 05/03/2023 6:00 PM Genevieve Mahajan RN Active * Because of a physical, mental, or emotional condition, do you have difficulty doing errands alone such as visiting a doctor's office or shopping? Answer Date of Assessment Author Status No 05/03/2023 6:00 PM Genevieve Mahajan RN Active documented as of this encounter Mental Status * Because of a physical, mental, or emotional condition, do you have serious difficulty concentrating, remembering, or making decisions? Answer Entry Date Author Status No 05/03/2023 6:00 PM CDT Higuera, Genevieve A , RN Active documented in this encounter Plan of Treatment Upcoming Encounters Date Type Department Care Team (Late st Contact Info) Description 09/13/2025 1:30 PM WELDING SUPERVISOR Office Visit [facility] [address] [facility] [facility] [place] [place] [address] Oscar Vilma Sherrie, VINYL HANGER [address] [place], [place] [id number] documented as of this encounter Goals Goal Patient Goal Type Associated Problems Recent Progress Patient-Stated? Author Family - family caregiver with be involved in care transitions and discharge planning Lifestyle No Rashmi Melendez, PRODUCTION SUPERVISOR TRAINEE documented as of this encounter Procedures Procedure Name Priority Date/Time Associated Diagnosis Comments BASIC METABOLIC PANEL Routine 02/25/2024 COMPREHENSIVE METABOLIC PANEL Routine 02/24/2023 COMPREHENSIVE METABOLIC PANEL Routine 02/24/2023 documented in this encounter Results * (ABNORMAL) BASIC METABOLIC PANEL (02/25/2024) SODIUM S/P/B 133 POTASSIUM S/P/B 4.2 CO2 31 CHLORIDE S/P/B 94 GLUCOSE 70 mg/dL CALCIUM S/P/B 9.3 BUN 14 CREATININE S/P/B 1.05(A) 0.5 - 1.0 EGFR NON-AFR. AMER. 56 <=90 02/25/2024 us Default History Genericprovider LABORATORY Final Result * (ABNORMAL) COMPREHENSIVE METABOLIC PANEL (02/24/2023) SODIUM S/P/B Comment:error,deleted us Default History Genericprovider LABORATORY Edited Result - Final * (ABNORMAL) COMPREHENSIVE METABOLIC PANEL (02/24/2023) SODIUM S/P/B Comment:error,deleted us Default History Genericprovider LABORATORY Edited Result - Final documented in this encounter Visit Diagnoses Not on filedocumented in this encounter Care Teams Overseamer Relationship Specialty Start Date End Date Mira Vazquez APNP [address] [place] [id number] PCP - General NURSE PRACTITIONER 12/12/23 07/19/24 Linus Denise MD [address] [place] [address] [address] [place] [address] PCP - General FAMILY PRACTICE 07/20/24 12/19/24 Rufus Dougherty MD [address] [place] [id number] PCP - General FAMILY PRACTICE 12/20/24 documented as of this encounter
--- OUTSIDE RECORDS SUMMARY | 2025-07-14 15:18 | XMS_ITS | Encounter Summary ---
Author Organization [facility] Address [address], [place] [address] Phone Care Team Providers Care Studio Designer Name Role Phone El Gomes MD Primary Care Provider [phone] Reason for Visit * Reason Comments Med Refill Encounter Details Date Type Department Care Team (Late st Contact Info) Description 07/16/2021 Refill [facility] Nephrology and Hypertension [address] [facility], [address] [facility] [place] [address] Hoang Sanderson MD [address] [facility], [address] [place] [address] Social History Tobacco Use Types Packs/Day Years Used Date Smoking Tobacco: Every Day Smokeless Tobacco: Never Alcohol Use Standard Drinks/Week Comments No 0 (1 standard drink = 0.6 oz pur e alcohol) Comments Unknown Sex and Gender Information Value Date Recorded Sex Assigned at Not on file Legal Sex Female 8:28 AM [facility] Gender Identity Not on file Sexual Orientation Not on file documented as of this encounter Plan of Treatment Not on file documented as of this encounter Visit Diagnoses Not on filedocumented in this encounter Care Teams Studio Designer Relationship Specialty Start Date End Date El Gomes MD PCP - General Internal Medicine 02/20/21 documented as of this encounter
--- OUTSIDE RECORDS SUMMARY | 2025-07-14 15:18 | XMS_ITS | Clinical Summary ---
Author Organization [facility] Address [address] [place] [address] Care Team Providers Care Interior Design Project Manager Name Role Phone Cody Hammer MD Unavailable [phone] Jessica Espino MD Unavailable Peter Fong MD Unavailable [phone] Hoang Sanderson MD Unavailable [phone] Aruna Gutiérrez MD Unavailable [phone] Joel Del Rosario MD Unavailable [phone] Rufus Dougherty MD Primary Care Provider [phone] Silver Dumont MD Unavailable [phone] Allergies Active Allergy Reactions Criticality Noted Date Comments Catalino Inhibitors Rash Medium 11/15/2020 Rash Amoxicillin Other (See comments) 04/09/2025 Aspirin Other (See comments) Low 10/28/2021 GI bleed in the past Bempedoic Acid Other (See comments) Low 10/28/2021 Cat Hair Standardized Allergenic Extract Shortness of breath,Itching High 05/06/2018 Cefuroxime Diarrhea Low 05/06/2018 Cephalexin Unknown 10/02/2019 Ciprofloxacin Diarrhea,Rash,Stom ach upset Medium Reaction: Rash, , Reaction: Rash, Clavulanic Acid Other (See comments) 04/09/2025 Clonidine Mental status changes Low 10/24/2016 Per patient addictive and feels dopey Diazepam Unknown 04/27/2023 Diltiazem Other (See comments) Low 09/12/2013 Multiple symptoms Doxazosin Shortness of breath High 05/06/2018 Confusion, Wheezing Doxycycline Nausea only High 04/09/2025 stomach pain, blood in stool Evolocumab Other (See comments) Low 06/12/2021 Fluconazole Diarrhea,Stomach upset Medium Reaction: severe reaction to other medications, Formoterol Shortness of breath High 11/15/2023 Grass Pollen Unknown 04/09/2025 House Dust Rhinitis High 04/09/2025 Hydralazine Unknown 05/06/2018 Per patient Cannot take due to low salt Hydrochlorothiazide Dizziness Low 09/12/2013 Iodinated Contrast Media Shortness of breath High 07/09/2021 Other reaction(s): sensitive Iodine Anaphylaxis High 07/10/2021 Mold Unknown 04/09/2025 Montelukast Mental status changes High 04/09/2025 Qtmzgsjz-Fmvavpislu-Qlrqhk josette Blisters,Swelling, Other (See comments),Rash High 02/01/2019 Olmesartan Other (See comments),Stomach upset Low 10/24/2016 GI Symptoms Harmon-3 Fatty Acids Other (See comments) Low 04/23/2024 Pravastatin Muscle pain Medium 10/09/2020 Prednisone Anxiety High 11/15/2023 Propranolol Unknown 05/06/2018 Sertraline Anxiety Low Reaction: Neuro problems, serotonin syndrome Yjhpwar-Dcy-Uve Reductase Inhibitors Other (See comments) Low 02/01/2019 Muscles burning and bone and back pain Sulfa (Sulfonamide Antibiotics) Rash Medium 10/24/2016 Sulfamethoxazole Rash Medium Reaction: Rash, Sulfamethoxazole-Trimethop rim Hives High 09/06/2019 Telithromycin Other (See comments) Low 09/12/2013 Other reaction(s): Other (see Comments) Visual disturbance Visual disturbance Tree And Shrub Pollen Unknown 04/09/2025 Trimethoprim Rash Medium Reaction: Rash, Venom-Wasp Rash High 04/09/2025 Ezetimibe Muscle pain Medium 07/10/2020 Azithromycin Stomach upset,Fatigue Low 05/06/2023 Medications oxygen 3 L/min nightly Acti ve telmisartan (MICARDIS) 80 mg tablet 1 tablet (80 mg total) Active amLODIPine (NORVASC) 5 mg tablet amlodipine 5 mg tablet TAKE 1 TABLET BY MOUTH ONCE DAILY 1 Active ergocalciferol (VITAMIN D) 50,000 unit capsule TAKE 1 CAPSULE BY MOUTH ONCE A WEEK DIRECTED 2 Active famotidine (PEPCID) 10 mg tablet Take 1 tablet (10 mg total) by mouth 2 (two) times a day 3x a day Active cyanocobalamin , vitamin B-12, 1,000 mcg tablet extended release Take 1 capsule by mouth daily Active calcium carbonate-vit D3-min 600 mg calcium- 400 unit tablet Take 1 tablet by mouth daily Active acetaminophen 500 mg capsuleIndicat ions:Myalgia,P ain Take 1 capsule (500 mg total) by mouth every 6 (six) hours as needed for mild pain (pain scale 1-4) Active ipratropium-al buteroL (DUO-NEB) 0.5-2.5 mg/3 mL nebulizer solution Take 3 mL by nebulization every 6 (six) hours as needed for wheezing or shortness of breath 90 mL 5 Active telmisartan (MICARDIS) 40 mg tabletIndicati ons:hypertensi on Take 1 tablet (40 mg total) by mouth daily Am dose 5 Active pb root, bulk, powder as needed Active magnesium gluconate 200 mg tabletIndicati ons:hypomagnes emia Take 1 tablet (200 mg total) by mouth daily Active albuterol HFA (PROVENTIL HFA,VENTOLIN HFA,PROAIR HFA) 90 mcg/actuation inhaler Inhale 2 puffs every 4 (four) hours as needed for wheezing 9 g 3 5 Active predniSONE (DELTASONE) 50 mg tablet Take 1 tab 13 hours, 7 hours and 1 hour prior to scan along with 50 MG Benadryl. 3 tablet 5 025 Discontin ued(Thera py completed ) diphenhydrAMIN E (BENADRYL) 50 mg capsule Take 1 capsule (50 mg total) by mouth once for 1 dose 1 capsule 5 025 Discontin ued(Thera py completed ) montelukast (SINGULAIR) 10 mg tablet Take 1 tablet by mouth nightly 90 tablet 3 5 025 Discontin ued(Patie nt Reported) Active Problems Problem Noted Date Diagnosed Date Ventral hernia with obstruction and without gang alexis 07/04/2025 Assessment & Plan (07/04/2025 10:40 AM CDT): Given the small bowel noted within the hernia on CT scan from last year and the symptomatic nature we will set her up for repair. We have discussed doing this via a minimally invasive approach. We have discussed the need for mesh implantation. The patient is quite nervous as her father had a hernia repair where it sounds like his bowel was nicked which led to some further complications. We have discussed postoperative lifting restrictions. In the meantime we have also discussed wearing an abdominal binder to try and help offload any discomfort. We will have her obtain medical clearance from her primary care physician and then we will set her up for surgery. Atherosclerotic PVD with intermittent claudicati on 05/17/2025 Hypoxemia associated with sleep 03/14/2025 COPD exacerbation 11/25/2024 Encounter for medical examination to establish c are 07/20/2024 Assessment & Plan (07/20/2024 1:45 PM CDT): A(n) initial well visit to establish care has been performed today. Sindy Thornton is not up to date on screening tests. She is in need of hepatitis B, C and Cholesterol screening. She is not up to date on needed preventative vaccinations; She is in need of Influenza. We discussed healthy lifestyle habits, educational material has been given. Medications reviewed, changes documented as per the medical record and discussed with patient along with risks vs benefits. Specific topics reviewed: drugs, ETOH, and tobacco, importance of regular dental care, importance of regular exercise, importance of varied diet, limit TV, media violence, minimize junk food, and seat belts. Return in 6 months Polymyalgia rheumatica 07/20/2024 Depression, recurrent 07/20/2024 Dehydration 04/23/2024 SIADH (syndrome of inappropriate ADH production) 11/24/2023 Bronchitis 06/18/2023 Muscle weakness 05/06/2023 Spinal stenosis 02/19/2023 Assessment & Plan (02/19/2023 12:58 PM CDT): For patient has a history of spinal stenosis, clinically her symptoms are more consistent with lumbosacral spine disease as they are positional. I have written a referral for Dr. Rivera with Neurosurgery. EMAMNUEL on CPAP 01/05/2023 Acute gastroenteritis 09/04/2022 Gastroesophageal reflux disease without esophagi tis 04/21/2022 Sinusitis 04/21/2022 Cough 04/21/2022 Gastro-esophageal reflux disease without esophag itis 04/21/2022 Restrictive lung disease 04/07/2022 Simple chronic bronchitis 04/07/2022 Chronic low back pain 11/19/2021 Chronic thoracic back pain 11/19/2021 Pain of both hip joints 11/19/2021 History of coronary artery stent placement 11/05 Presence of coronary angioplasty implant and gra ft 11/05/2021 Polyp of colon 10/27/2021 Paresthesia 10/07/2021 Idiopathic peripheral neuropathy 10/07/2021 Abnormal liver function tests 06/12/2021 ADHD 06/12/2021 Anemia, iron deficiency 06/12/2021 Atherosclerosis of [place] of extremities with intermittent claudication, unspecified extremity 06/12/2021 Assessment & Plan (05/31/2025 11:06 AM CDT): Progressive and now disabling claudication bilateral lower extremities left greater than the right with a history of digital ischemia. I have recommended proceeding with left lower extremity angiogram possible intervention. Procedure indications and risks have been explained. Patient understands agrees to proceed. Contact with and (suspected) exposure to other communicable diseases 06/12/2021 Encounter for health-related screening Hyperlipidemia, unspecified 06/12/2021 Overview (08/20/2021): intol ot statin and repatha and zetia Assessment & Plan (02/19/2023 12:57 PM CDT): Stable continue Zetia. Hyponatremia 06/12/2021 Bilateral carotid artery occlusion 06/12/2021 Overview (08/20/2021): had cea follows with surgeion for duplex Overweight 06/12/2021 Fibromyalgia 06/12/2021 Tobacco use disorder, continuous 06/12/2021 Attention deficit hyperactivity disorder 021 Atherosclerosis of [place] of extremities with intermittent claudication, unspecified extremity 06/11/2021 Occlusion and stenosis of bilateral carotid leidy kenya 06/11/2021 Overview (02/05/2023): had cea follows with surgeion for duplex had cea follows with surgeion for duplex Hyponatremia 06/11/2021 Overweight 06/11/2021 Polyarthropathy 05/15/2021 Hemorrhoids 03/06/2021 Hemorrhoid 03/06/2021 Easy bruising 01/07/2021 History of cholecystectomy 12/13/2020 Irregular bowel habits 12/13/2020 Dysthymia 12/12/2020 Anxiety disorder 12/12/2020 History of cholecystectomy 12/12/2020 Irregular bowel habits 12/12/2020 Atherosclerosis of [place] of both lower extremities with intermittent claudication 12/03/2020 Assessment & Plan (06/18/2025 12:01 PM CDT): Continue anti-platelet therapy follow up 6 months. Assessment & Plan (05/05/2025 2:15 PM CDT): Continues to have claudication symptoms to bilateral lower extremities right worse than the left. Has been receiving physical therapy to help with her ID band which is overall improving. She continues to deny any rest pain however she is starting to have discoloration to the tips of both of his 1st toes again left 1 worse than the right. There is tingling to the areas well. She is extremely concerned about undergoing an angiogram given her previous history with her endarterectomy. She would like to actually meet Dr. Dumont to further discuss the procedure to hopefully make her at ease. Follow up in the next 3 weeks to further discuss the angiogram Assessment & Plan (04/14/2025 11:19 AM CDT): Non limiting claudication to both lower extremities. Denies rest pain or ischemic ulcerations. We will have the patient follow-up in 6 months for routine surveillance with lower extremity arterial Doppler. Continue daily activity regimen. Patient is unable to take aspirin due to history of GIB. And is allergic to statins. Assessment & Plan (02/05/2023 3:33 PM CDT): Impression: Chronic lower extremity arterial occlusive disease. Patient complaining of worsening foot pain over the past month with no new surveillance imaging performed over the past 12 months. Plan: Will further evaluate patient's compliant with lower extremity arterial Doppler surveillance. Patient follow-up in 1 month for re-evaluation and discussion of test results. Assessment & Plan (02/07/2022 12:45 PM CDT): Impression: Stable nondisabling claudication of both lower extremities with no progressive stenosis noted on arterial Doppler surveillance. No ischemic ulcerations or symptoms suggestive of rest pain currently. Plan: No surgical intervention currently needed. Recommend ongoing risk factor modifications and follow-up in 6 months for re-evaluation with repeat lower extremity arterial Doppler surveillance. Assessment & Plan (12/03/2020 12:09 PM DRIVER OPERATOR): Impression: Nondisabling claudication of both lower extremities noted on lower extremity arterial Doppler studies performed today in office. She has evidence of moderate distal ischemia both lower extremities with no complaint of disabling claudication or ischemic rest pain. Plan: No surgical intervention currently needed. Recommend ongoing risk factor modifications and follow-up in 1 year for re-evaluation and repeat lower extremity arterial Doppler surveillance. Abnormal cardiovascular stress test 11/29/2020 Acute postoperative pain of hip 11/29/2020 Chronic cervical radiculopathy 11/29/2020 Edema 11/29/2020 Fall on board fishing boat 11/29/2020 Pain of left leg 11/29/2020 Coronary atherosclerosis 11/19/2020 Peripheral vascular disease 11/19/2020 Assessment & Plan (02/19/2023 12:57 PM CDT): Bilateral lower extremity with moderate occlusive disease. Continue risk factor modification with Zetia and Plavix. Based on her history and recent worsening of pain in the lower extremities I suspect majority of her pain is from lumbosacral spine disease and or spinal stenosis. Overall her symptoms are not entirely consistent with claudication despite having occlusive disease. We will plan for evaluation in 1 month after she is been evaluated by Neurosurgery. Atherosclerosis of [place] co ronary artery of [place] heart with angina pectoris 11/18/2020 PVD (peripheral vascular disease) 11/18/2020 Hypomagnesemia 10/01/2020 Posttraumatic stress disorder 10/01/2020 Vitamin D deficiency 09/16/2020 Degeneration of intervertebral disc 09/16/2020 Chronic neck pain 09/16/2020 Hypertensive disorder 09/16/2020 Hypothyroidism 09/16/2020 Allergic rhinitis 09/16/2020 Smoker 09/16/2020 Assessment & Plan (04/14/2025 11:22 AM CDT): Patient with history of tobacco abuse who is a current everyday 1/2 pack per day smoker. I had a greater than 3 minute discussion with the patient on the importance of smoking cessation and the negative affects on their cardiovascular health. Patient understands importance of cessation. Chest pressure 09/07/2020 Dyslipidemia 09/07/2020 Assessment & Plan (05/31/2025 11:08 AM CDT): Dyslipidemia chronic controlled. Continue statin therapy. Tobacco abuse 09/07/2020 Assessment & Plan (05/05/2025 2:04 PM CDT): Continues to decrease and work on decreasing her smoking Unequal blood pressure in upper extremities 08/26 Dyspnea on exertion 09/07/2020 Candidiasis 11/10/2019 Bilateral carotid artery stenosis 03/17/2019 Assessment & Plan (06/18/2025 12:01 PM CDT): Stable. Continue yearly duplex. Assessment & Plan (05/31/2025 11:08 AM CDT): History of carotid stenosis status post left carotid endarterectomy. No significant recurrent disease continue yearly duplex surveillance. Assessment & Plan (05/05/2025 2:06 PM CDT): Status post left endarterectomy [address] Carlson. Currently remains asymptomatic. Right internal carotid artery shows moderate stenosis on current duplex and left internal carotid artery also 50 69% stenosis. Continue aspirin statin therapy, continue to work on complete smoking cessation and follow-up in 6 months for routine surveillance with carotid duplex Assessment & Plan (04/14/2025 11:19 AM CDT): Remains asymptomatic. Follow-up in 1 year for routine surveillance with carotid duplex. 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 Del Rosario now, is happy with his management Assessment & Plan (02/05/2023 3:33 PM CDT): Impression: Stable chronic bilateral asymptomatic carotid stenoses. No surveillance imaging performed over the past 12 months. Plan: Will further evaluate her chronic bilateral carotid stenosis with carotid duplex surveillance. Patient to follow-up over the next month for re-evaluation and discussion of test results. Assessment & Plan (02/07/2022 12:44 PM CDT): Impression: Patient continues do well status post left carotid endarterectomy. She has stable asymptomatic bilateral carotid stenosis. Plan: No surgical intervention currently needed. Recommend repeat carotid duplex surveillance imaging to be performed in 6 months. Assessment & Plan (12/03/2020 12:10 PM DRIVER OPERATOR): Impression: History of left carotid endarterectomy. She has stable asymptomatic bilateral carotid artery disease with scheduled carotid duplex surveillance to be performed in 1 year. Plan: Continue ongoing risk factor modifications and follow-up in 1 year for re-evaluation and repeat carotid duplex surveillance. Assessment & Plan (04/12/2020 2:01 PM CDT): Impression: Stable asymptomatic bilateral internal carotid artery disease. No progressive stenosis noted on carotid duplex surveillance. Plan: Continue ongoing risk factor modifications and follow-up in 6 months for re-evaluation and repeat carotid duplex surveillance. Left carotid artery stenosis 03/17/2019 Postablative hypothyroidism 02/15/2019 Multinodular goiter 02/15/2019 Pulmonary air trapping 02/01/2019 Non-seasonal allergic rhinitis 02/01/2019 Sleep related hypoxia 08/31/2018 Pulmonary nodules 06/08/2018 Chronic cough 05/13/2018 Chronic obstructive pulmonary disease 05/13/2018 Nicotine dependence 05/13/2018 Malignant hypertension 05/13/2018 Htjud-0-btjrjknlijb deficiency carrier 8 Obstructive sleep apnea 05/13/2018 Vocal cord paralysis 05/13/2018 PTSD (post-traumatic stress disorder) 05/13/2018 Diverticulitis 04/14/2018 Osteoporosis 04/14/2018 Tonic pupillary reaction 04/14/2018 Abnormality of globulin 04/14/2018 Glucan 1,6-kpeiw-evjtdwakkkr deficiency 04/14/20 18 Idiopathic osteoarthritis 06/11/2016 Degeneration of intervertebral disc 02/13/2016 Overview (01/30/2017): Degenerative disc disease Fibrositis 02/13/2016 Overview (01/30/2017): Fibromyalgia Hypertension 02/13/2016 Overview (01/30/2017): Hypertension Assessment & Plan (02/19/2023 12:57 PM CDT): Stable continue amlodipine 5 mg. Assessment & Plan (02/05/2023 3:36 PM CDT): Impression: Stable chronic hypertension. Plan: Medications reviewed and recommend continuing daily antihypertensive regimen as directed by patient's primary care physician. Assessment & Plan (02/07/2022 12:45 PM CDT): Impression: Stable chronic hypertension. Plan: Medications reviewed and recommend continuing daily antihypertensive regimen as directed by patient's primary care physician. Assessment & Plan (04/12/2020 2:58 PM CDT): Impression: Patient states her hypertension has been uncontrolled and her primary care physician is currently adjusting her antihypertensive regimen. Plan: Continue current antihypertensive regimen as directed by PCP. Hypothyroidism 02/13/2016 Overview (01/30/2017): Hypothyroid Generalized anxiety disorder 02/13/2016 Overview (01/30/2017): FRANCIS - Generalized anxiety disorder Diverticulosis of intestine 02/13/2016 Overview (01/30/2017): Diverticulosis Mastodynia 04/18/2015 History of rib fracture 04/18/2015 Degenerative disc disease 04/18/2015 Migraine without status migrainosus, not intract able 09/17/2013 Resolved Problems Problem Noted Date Diagnosed Date Resolved Date Tobacco use disorder, continuous 06/11/2021 04/14/2025 Fibromyalgia 10/01/2020 04/14/2025 Encounters Date Type Department Care Team Description 07/04/2025 10:30 AM CDT Office Visit [address] [place] [address] Kit Leblanc MD Ventral hernia with obstruction and without gangrene (Primary Dx) 06/19/2025 Orders Only [facility] at [address] [place] [address] Darrius Forbes MD Umbilical hernia without obstruction and without gangrene (Primary Dx) 06/14/2025 Telephone [facility] at [address] [place] [address] Leigh Gorman MA 06/07/2025 11:00 AM CDT Office Visit [facility] Vein Surgery [address] [place] [address] Silver Dumont MD Atherosclerosis of [place] artery of both lower extremities with intermittent claudication (Primary Dx); Bilateral carotid artery stenosis 05/31/2025 12:00 PM CDT - 05/31/2025 1:00 PM CDT Surgery [facility] Manager [address] [place] [address] Silver Dumont MD LEFT LOWER EXTREMITY ANGIOGRAM WITH POSSIBLE INTERVENTION 05/31/2025 10:10 AM CDT - 05/31/2025 7:39 PM CDT Hospital Encounter [facility] Manager [address] [place] [address] Silver Dumont MD Atherosclerotic PVD with intermittent claudication; Other disorder of circulatory system Discharge Disposition: Discharge to home or self care 05/23/2025 Telephone [facility] Vein Surgery [address] [place] [phone] Xin Freedman, RN 05/23/2025 Orders Only [facility] Vascular and Vein Surgery [address] [place] [phone] Silver Dumont MD 05/22/2025 Telephone [facility]ascular and Vein Surgery [address] [place] [phone] Siena Downey 05/17/2025 10:30 AM CDT Office Visit [facility] Vascular and Vein Surgery [address] [place] [phone] Silver Dumont MD Atherosclerosis of [place] artery of both lower extremities with intermittent claudication (Primary Dx); Bilateral carotid artery stenosis; Dyslipidemia 05/17/2025 Documentation [facility] Vein Surgery [address] [place] [phone] Xin Freedman, RN 05/04/2025 1:00 PM CDT Office Visit [facility] Vascular and Vein Surgery [address] [place] [phone] Rosaline Stein NP Tobacco abuse (Primary Dx); Primary hypertension; Pure hypercholesterolemia; Bilateral carotid artery stenosis; Atherosclerosis of [place] artery of both lower extremities with intermittent claudication 05/03/2025 2:00 PM CDT Ancillary Procedure [facility] Vascular and Vein Surgery at [address] [place] [phone] Atherosclerosis of [place] artery of both lower extremities with intermittent claudication 05/03/2025 Orders Only [facility] Vascular and Vein Surgery [address] [place] [phone] Silver Dumont MD Atherosclerosis of [place] artery of both lower extremities with intermittent claudication (Primary Dx) 04/13/2025 1:00 PM CDT Office Visit [facility]ascular and Vein Surgery [address] [place] [address] Rosaline Stein, SANTOSH Atherosclerosis of [place] artery of both lower extremities with intermittent claudication (Primary Dx); Bilateral carotid artery stenosis; Primary hypertension; Pure hypercholesterolemia; Smoker 04/13/2025 Results Follow-Up [facility] at [place] [address] [place] [address] Darrius Forbes MD Calprotectin, fecal, CRP (acute phase), Tissue transglutaminase IgA (TGG-IgA Ab), IgA from Last 3 Months Immunizations Immunization Administration Dates Next Due Influenza LAIV (Nasal) 07/23/2020,08/18/2017 Influenza, Quadrivalent, Rec ombinant, Egg Free, Preservative Free, Intramuscular 07/26/2020 Influenza, Quadrivalent, Spl it, Intramuscular 07/23/2020,08/13/2018,08/18/2017 Influenza, Quadrivalent, Spl it, Preservative Free, Intramuscular 08/24/2023,08/20/2022,08/20/2021 Influenza, Trivalent, High D ose, Split, Preservative Free, Intramuscular 08/19/2019,08/13/2018,08/22/2015 Influenza, Trivalent, IM (MDV) 6,10/03/2015,11/29/2014,09/04,08/29/2013 Influenza, Unspecified 08/24/2023,2021,08/20/2021,07/26,08/19/2019,08/13/2018,08/18/2017 ,09/15/2016,10/03/2015,08/22/2015,01/2015,09/04/2014,08/29/2013 Jessie (J&J) SARS-CoV-2 Vaccination 02/18/2021 Pneumococcal Conjugate PCV 13 09/15/2016, 016 Pneumococcal Polysaccharide PPV23 09/08/2017 Sars-CoV-2, Unspecified 02/01/2021 Tdap 12/22/2020 Surgical History Surgery Date Site/Laterality Comments OTHER SURGICAL HISTORY Menorrhagia, pain, benign ovarian cysts, MARKELL: JOSE-BSO, Black (?) urethral suspension CHOLECYSTECTOMY Cholecystectomy CAROTID ENARTERECTOMYY Left carotid endarterectomy HYSTERECTOMY CAROTID STENT CARDIAC CATHETERIZATION 05/31/2025 Left Procedure: LEFT LOWER EXTREMITY ANGIOGRAM WITH POSSIBLE INTERVENTION; Surgeon: Silver Dumont MD; Location: [facility] [employer]OCK[employer] REPA[employer]; Service: Vascular; Laterality: Left; Medical History Medical History Date Comments Hx Other Medical Menorrhagia, pa in, benign ovarian cysts, MARKELL; Comments: RED 02/14/2016 - Thyroid disease Nerve damage COPD (chronic obstructive pu lmonary disease) Carotid stenosis Hypoxia EMMANUEL (obstructive sleep apnea) Fibromyalgia Rheumatoid arthritis (HCC) Hypertension Coronary artery disease Hyperlipidemia Family History Medical History Relation Name Comments Other Brother 2 Cancer, basal c ell; Cause of : Cancer, basal cell Alcohol abuse Father Alcoholism; Heart attack Father Myocardial infa rction; Cause of : Myocardial infarction Alcohol abuse Mother Alcoholism; Hypertension Mother Hypertension; Mitral valve prolapse Mother Multip le myeloma; Cause of : Multiple myeloma Other Paternal Grandmother Cancer, unknown primary; Suicidality Paternal Grandmother Suicide ; Cause of : Suicide Relation Name Status Comments Brother 1 Brother 2 Father (Age 54) Mother Paternal Grandmother Social History Tobacco Use Types Packs/Day Years Used Date Smoking Tobacco: Every Day Cigarettes 0.3 64.7 Started: 1960 Smokeless Tobacco: Never Tobacco Cessation:Ready to Q uit: Not Asked; Counseling Given: Not Answered Comments:Smoking History Packs/day: 1 Packs Alcohol Use Standard Drinks/Week Comments No 0 (1 standard drink = 0.6 oz pur e alcohol) AUDIT-C Answer Date Recorded Q1: How often do you have a drink containing alcohol? Never 05/31/2025 Q2: How many drinks containi ng alcohol do you have on a typical day when you are drinking? Patient does not drink Q3: How often do you have si x or more drinks on one occasion? Never 05/31/2025 PHQ-2 Answer Date Recorded PHQ-2 Total Score (If total score is 3 or more points, staff should administer the PHQ-9) 2 07/20/2024 PHQ-9 Answer Date Recorded PHQ-9 Total Score 9 07/20/2024 Personal Safety Answer Date Recorded Have you ever been in or are you currently in a harmful physical or emotional relationship or is someone making you feel afraid or unsafe? 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 Gender Identity Not on file Sexual Orientation Not on file Obstetrics History Last Filed Vital Signs Vital Sign Reading Time Taken Comments Blood Pressure 166/78 07/04/2025 9:48 AM CDT Pulse 73 07/04/2025 9:48 AM CDT Temperature 36.2 C (97.1 F) 07/04/2025 9:48 AM CDT Respiratory Rate 16 05/31/2025 6:57 PM CDT Oxygen Saturation 99% 07/04/2025 9:48 AM CDT Inhaled Oxygen Concentration - - Weight 59.6 kg (131 lb 4.8 oz) 07/04/2025 9:48 A M CDT Height 154.9 cm (5' 0.98) 07/04/2025 9:48 AM CD T Body Mass Index 24.82 07/04/2025 9:48 AM CDT Plan of Treatment Health Maintenance Due Date Last Done Comments Hepatitis C Screening 1950 Hepatitis B Screening 1968 Osteoporosis Screening-Bone Density Scan 12/30/2024 12/30/2022 Covid-19 Vaccine ( season) 2025 02/18/2021, 02/01/2021, 02/01/2021 Influenza Vaccine (#1) 2025 , 08/24/2023, 08/24/2023, Additional history exists Depression Screening 07/20/2025 07/20/2024, 07/20/20 24 Well Visit 65+ 07/20/2025 07/20/2024 Zoster Vaccine (1 of 2) 07/20/2025 Post poned from 2000 (Patient declined, but will receive in the future) Lung Cancer Screening 10/25/2025 10/24/2024 , 10/21/2023, 08/20/2023 Fall Risk Assessment 05/31/2026 05/31/2025, 07/20/20 24 DTaP/Tdap/Td Vaccine (2 - Td or Tdap) 12/22/2030 12/22/2020 Colon Cancer Screening-Colonoscopy 08/08/2032 08/08/2022 Pneumococcal vaccine 65+ Completed 017, 09/15/2016, 06/16/2016 Colon Cancer Screening-CT Colonography Discontinued 08/08/2022 Colon Cancer Screening-DNA Stool Discontinued 08/08/2022 Colon Cancer Screening-FIT Discontinued 08/08/2022 Colon Cancer Screening-Sigmoidoscopy Discontinued 08/08/2022 Breast Cancer Screening-Mammogram Discontinued 05/12/2024, 12/30/2022, 09/13/2014 Procedures Procedure Name Priority Date/Time Associated Diagnosis Comments ANGIOGRAPHY UNILATERAL EXTREMITY S&I 13036 Routine 05/31/2025 12:59 PM CDT Atherosclerotic PVD with intermittent claudication B ABO / RH CONFIRMATION TESTING STAT 05/31/2025 10:44 AM CDT EGFR Routine 05/31/2025 10:31 AM CDT Atherosclerotic PVD with intermittent claudication DIFFERENTIAL AUTO Routine 05/31/2025 10: 31 AM CDT Atherosclerotic PVD with intermittent claudication ANTIBODY SCREEN Timed 05/31/2025 10:31 AM CDT Atherosclerotic PVD with intermittent claudication ABO/RH Timed 05/31/2025 10:31 AM CDT Atherosclerotic PVD with intermittent claudication PROTIME-INR Routine 05/31/2025 10:31 AM CDT Atherosclerotic PVD with intermittent claudication TYPE AND SCREEN Timed 05/31/2025 10:31 AM CDT Atherosclerotic PVD with intermittent claudication APTT Routine 05/31/2025 10:31 AM CDT Atherosclerotic PVD with intermittent claudication Other disorder of circulatory system CBC WITH AUTO DIFFERENTIAL Routine 05/31/2025 10:31 AM CDT Atherosclerotic PVD with intermittent claudication BASIC METABOLIC PANEL Routine 05/31/2025 10:31 AM CDT Atherosclerotic PVD with intermittent claudication US ARTERIAL DOPPLER LOWER EXTREMITY BILATERAL Schedule Routine, Read Routine (OP Routine) 05/03/2025 2:47 PM CDT Atherosclerosis of [place] artery of both lower extremities with intermittent claudication CT LUNG CANCER SCREENING Schedule Routine, Read Routine (OP Routine) 10/24/2024 2:53 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 Silver Dumont MD CV CARDIAC CATH PROCEDURES Final Result * ABO / Rh Confirmation Testing (05/31/2025 10:44 AM CDT) ABO/Rh Confirmation A Positive MHB Blood 05/31/2025 10:4 4 AM CDT 05/31/2025 10:48 AM CDT us Silver Dumont MD LAB BLOOD ORDERABLES Final Result Performing Organization Address City/State/[facility] Co de Phone Number [facility] [address] [facility] Department [place] [address] [facility] * eGFR (05/31/2025 10:31 AM CDT) eGFR 70 >=60 mL/min/1. 73 m2 Comment: Interpretive Data Reference Interval Normal >/= 90 mL/min/1.73m2 Mildly decreased* 60 - 89 mL/min/1.73m2 Mildly to moderately decreased 45 - 59 mL/min/1.73m2 Moderately to severely decreased 30 - 44 mL/min/1.73m2 Severely decreased 15 - 29 mL/min/1.73m2 Kidney Failure < 15 mL/min/1.73m2 *Relative to young adult level Estimated glomerular filtration rate is determined by the 2020 CKD-EPI equation recommended by the National Kidney Foundation (A Unifying Approach to GFR Estimation: Recommendations of the NKF-ASK Task Force on Reassessing the Inclusion of Race in Diagnosing Kidney Disease, JASN 2020). The CKD-EPI equation should not be used for patients with unstable renal function and has not been validated in children and those over 70. Current interpretive data was last reviewed 2021. Blood 05/31/2025 10:3 1 AM CDT 05/31/2025 10:36 AM CDT us Silver Dumont MD LAB BLOOD ORDERABLES Final Result [place] [id number] [facility] Department [place] [address] * (ABNORMAL) Differential, auto (05/31/2025 10:31 AM CDT) Neutrophil abs 6.39 1.50 - 6.50 K/cumm Imm gran abs 0.02 0.00 - 0.10 K/cumm [facility] Lymphocyte abs 0.54(L) 0.80 - 3.30 K/cumm [facility] Monocyte abs 0.03(L) 0.20 - 0.80 K/cumm [facility] Eosinophil abs 0.00 0.00 - 0.50 K/cumm [facility] Basophil abs 0.03 0.00 - 0.10 K/cumm [facility] Neutrophil pct 91.2 % [facility] Comment: Interpretive Data Percent cell count reference ranges are not reported, since discordance with absolute values may lead to misinterpretation of CBC data. Current Interpretive Data was last revised on 2018. Imm gran pct 0.3 % [facility] Comment: Interpretive Data Percent cell count reference ranges are not reported, since discordance with absolute values may lead to misinterpretation of CBC data. Current Interpretive Data was last revised on 2018. Lymphocyte pct 7.7 % [facility] Comment: Interpretive Data Percent cell count reference ranges are not reported, since discordance with absolute values may lead to misinterpretation of CBC data. Current Interpretive Data was last revised on 2018. Monocyte pct 0.4 % [facility] Comment: Interpretive Data Percent cell count reference ranges are not reported, since discordance with absolute values may lead to misinterpretation of CBC data. Current Interpretive Data was last revised on 2018. Eosinophil pct 0.0 % [facility] Comment: Interpretive Data Percent cell count reference ranges are not reported, since discordance with absolute values may lead to misinterpretation of CBC data. Current Interpretive Data was last revised on 2018. Basophil pct 0.4 % [facility] Comment: Interpretive Data Percent cell count reference ranges are not reported, since discordance with absolute values may lead to misinterpretation of CBC data. Current Interpretive Data was last revised on 2018. Blood 05/31/2025 10:3 1 AM CDT 05/31/2025 10:36 AM CDT us Silver Dumont MD LAB BLOOD ORDERABLES Final Result [place] [id number] [facility] Department [place] [address] * (ABNORMAL) CBC with auto differential (05/31/2025 10:31 AM CDT) WBC 7.01 3.80 - 9.90 K/cumm Hgb 13.8 11.9 - 15.5 g/dL [facility] Hct 40.6 35.6 - 45.5 % [facility] Plt 329 150 - 400 K/cumm [facility] MPV 9.0(L) 9.1 - 12.3 fL [facility] RBC 4.36 3.90 - 5.20 M/cumm [facility] MCV 93.1 81.3 - 96.4 fL [facility] MCH 31.7 27.1 - 33.3 pg [facility] MCHC 34.0 32.3 - 35.7 g/dL [facility] RDW CV 12.6 11.1 - 14.9 % [facility] RDW SD 43.3 35.7 - 48.1 fL [facility] NRBC abs 0.00 0.00 - 0.01 K/cumm [facility] Blood 05/31/2025 10:3 1 AM CDT 05/31/2025 10:36 AM CDT Narrative ART - 05/31/2025 10:46 AM CDT If most recent labs were drawn prior to 4 AM, draw only prior to initiating procedure. Silver Dumont MD LAB BLOOD ORDERABLES Final Result Performing Organization Address [facility] Co de Phone Number [address] [place] [address] * ABO/Rh (05/31/2025 10:31 AM CDT) ABO/Rh A Positive Blood 05/31/2025 10:3 1 AM CDT 05/31/2025 10:36 AM CDT Narrative [facility] - 05/31/2025 11:19 AM CDT Has the patient had Daratumumab or Isatuximab in the past 6 months?->Unknown Silver Dumont MD LAB BLOOD BANK TEST ORDERA BLES Final Result Performing Organization Address [facility] de Phone Number [address] [place] [address] * aPTT (05/31/2025 10:31 AM CDT) aPTT 28 22 - 37 sec Comment: Interpretive data aPTT test has not been evaluated for monitoring heparin therapy. The anti-Xa is the preferred test. Current interpretive data was last revised on 2019. Blood 05/31/2025 10:3 1 AM CDT 05/31/2025 10:36 AM CDT Silver Dumont MD LAB BLOOD ORDERABLES Final Result Performing Organization Address City/[facility] Co de Phone Number [address] [place] [address] * Protime-INR (05/31/2025 10:31 AM CDT) Pathologist [facility] PT 13.20 12.00 - 14.60 sec INR 0.99 0.90 - 1.20 [facility] Comment: Interpretive data Oral anticoagulant therapeutic ranges: Venous thromboembolism prophylaxis or treatment: 2.0-3.0 CARDIOLOGY Standard range: 2.0-3.0 High-intensity range: 2.5-3.5 Refer to indication-specific guidelines for appropriate target ranges for prosthetic heart valve replacement. Current interpretive data was last revised on 2019. Blood 05/31/2025 10:3 1 AM CDT 05/31/2025 10:36 AM CDT Silver Dumont MD LAB BLOOD ORDERABLES Final Result Performing Organization Address [facility] Co de Phone Number [address] [employer] [place] [address] * Antibody screen (05/31/2025 10:31 AM CDT) [facility] Ramila, indirect, Gel Interpretation Negative ABSC Blood 05/31/2025 10:3 1 AM CDT 05/31/2025 10:36 AM CDT Narrative [facility] - 05/31/2025 11:19 AM CDT Has the patient had Daratumumab or Isatuximab in the past 6 months?->Unknown Silver Dumont MD LAB BLOOD BANK TEST ORDERA BLES Final Result Performing Organization Address City/[facility]/ZIP Co de Phone Number [address] [place] [address] * (ABNORMAL) Basic metabolic panel (05/31/2025 10:31 AM CDT) [facility] Sodium 136 135 - 145 mmol/L Potassium, pl 3.9 3.3 - 4.9 mmol/L [facility] Chloride 96(L) 97 - 110 mmol/L [facility] CO2 25 22 - 32 mmol/L [facility] Anion gap 15 2 - 15 mmol/L [facility] BUN 15 6 - 25 mg/dL [facility] Creatinine 0.86 0.60 - 1.10 mg/dL [facility] Glucose 139 70 - 199 mg/dL [facility] Comment: Interpretive Data Fasting glucose >/= 126 mg/dl is diagnostic for diabetes. Fasting is defined as no caloric intake for at least 8 hours. Fasting glucose between 100 mg/dl to 125 mg/dl is diagnostic of prediabetes. In a patient with classic symptoms of hyperglycemia or hyperglycemic crisis, a random glucose >/= 200 mg/dl is diagnostic for diabetes. In the absence of unequivocal hyperglycemia, results should be confirmed by repeat testing. The classification and Diagnosis of Diabetes Diabetes Care 2021; 46: S19-S40. Current interpretive data was last revised 2022. Calcium 10.0 8.5 - 10.3 mg/dL [facility] Blood 05/31/2025 10:3 1 AM CDT 05/31/2025 10:36 AM CDT us Silver Dumont MD LAB BLOOD ORDERABLES Final Result [facility] [address] [facility] Department [place] [address] * US Arterial Doppler Lower Extremity Bilateral (05/03/2025 2:47 PM CDT) Anatomical Region Laterality Modality Vascular Bilateral Ultrasound 05/03/2025 2:03 PM CDT Narrative 05/04/2025 10:37 AM CDT Vascular [facility] Vein Surgery [address] [place] [address] Lower Extremity Arterial Doppler Report Patient Name: SINDY SANTOSKayla : 1950 Study Date: 05/03/2025 2:03:00 PM Gender: F Personal Financial Planner: Pratima Sheehan RVT Location: [facility] Ref Provider: SILVER DUMONT Quality: Adequate Order Provider: SILVER DUMONT PROCEDURES: Arterial Report: Bilateral lower extremity arterial Doppler exam at rest. INDICATIONS: Worsening R>L claudication. HISTORY: HTN. HLD. CAD S/P stent. COPD. Current smoker. COMPARISONS: The previous exam was completed on 04/05/25. MEASUREMENTS: Right Value Left Value Rt Brachial Pressure 179 mmHg Lt Brachial Pressure 184 mmHg Rt High Thigh Pressure 181 mmHg Lt High Thigh Pressure 164 mmHg Rt Low Thigh Pressure 138 mmHg Lt Low Thigh Pressure 155 mmHg Rt Calf Pressure 119 mmHg Lt Calf Pressure 136 mmHg Rt SVP Pressure 110 mmHg Lt SVP Pressure 127 mmHg Rt DPA Pressure 96 mmHg Lt DPA Pressure 117 mmHg Rt 1st Digit Pressure 42 mmHg Lt 1st Digit Pressure 69 mmHg Rt High Thigh Index 0.98 Lt High Thigh Index 0.89 Rt Low Thigh Index 0.75 Lt Low Thigh Index 0.84 Rt Calf Index 0.65 Lt Calf Index 0.74 Rt PT CARTER Resting 0.6 Lt PT CARTER Resting 0.69 Rt DP CARTER Resting 0.52 Lt DP CARTER Resting 0.64 Rt Digit 1/Arm Index 0.23 Lt Digit 1/Arm Index 0.38 FINDINGS: Right Common Femoral Artery Analysis: The common femoral artery waveform is biphasic. Right Popliteal Artery Analysis: The popliteal waveform is monophasic. Right Posterior Tibial Artery Analysis: The posterior tibial waveform is monophasic. Right Anterior Tibial Artery Analysis: The anterior tibial waveform is monophasic. Right Digits: The right digit waveform is dampened. Left Common Femoral Artery Analysis: The common femoral artery waveform is biphasic. Left Popliteal Artery Analysis: The popliteal waveform is biphasic. Left Posterior Tibial Artery Analysis: The posterior tibial waveform is monophasic. Left Anterior Tibial Artery Analysis: The anterior tibial waveform is monophasic. Left Digits: The left digit waveform is dampened. CONCLUSIONS: 1. Ankle-brachial index of 0.5-0.8 is consistent with claudication and a moderate occlusive arterial disease in the right lower extremity. 2. Ankle-brachial index of 0.5-0.8 is consistent with claudication and a moderate occlusive arterial disease in the left lower extremity. 3. There is evidence of right leg arterial insufficiency at the level of femoral-popliteal arteries. 4. There is evidence of left leg arterial insufficiency at the level of femoral-popliteal arteries. ATTESTATION: I have reviewed and interpreted the pertinent images and measurements of this study. I attest to the conclusions in the final report that is provided above. Electronically Signed By: Eliecer Dumont MD 05/04/2025 10:02:52 AM CDT Procedure Note Eliecer Dumont MD - 05/04/2025 Vascular [facility] Vein Surgery [address] [place] [id number] Lower Extremity Arterial Doppler Report Patient Name: SINDY SANTOS M : 1950 Study Date: 05/03/2025 2:03:00 PM Gender: F Personal Financial Planner: Pratima Sheehan RVT Location: [facility] Ref Provider: SILVER DUMONT Quality: Adequate Order Provider: SILVER DUMONT PROCEDURES: Arterial Report: Bilateral lower extremity arterial Doppler exam at rest. INDICATIONS: Worsening R>L claudication. HISTORY: HTN. HLD. CAD S/P stent. COPD. Current smoker. COMPARISONS: The previous exam was completed on 04/05/25. MEASUREMENTS: Right Value Left Value Rt Brachial Pressure 179 mmHg Lt Brachial Pressure 184 mmHg Rt High Thigh Pressure 181 mmHg Lt High Thigh Pressure 164 mmHg Rt Low Thigh Pressure 138 mmHg Lt Low Thigh Pressure 155 mmHg Rt Calf Pressure 119 mmHg Lt Calf Pressure 136 mmHg Rt SVP Pressure 110 mmHg Lt SVP Pressure 127 mmHg Rt DPA Pressure 96 mmHg Lt DPA Pressure 117 mmHg Rt 1st Digit Pressure 42 mmHg Lt 1st Digit Pressure 69 mmHg Rt High Thigh Index 0.98 Lt High Thigh Index 0.89 Rt Low Thigh Index 0.75 Lt Low Thigh Index 0.84 Rt Calf Index 0.65 Lt Calf Index 0.74 Rt PT CARTER Resting 0.6 Lt PT CARTER Resting 0.69 Rt DP CARTER Resting 0.52 Lt DP CARTER Resting 0.64 Rt Digit 1/Arm Index 0.23 Lt Digit 1/Arm Index 0.38 FINDINGS: Right Common Femoral Artery Analysis: The common femoral artery waveform is biphasic. Right Popliteal Artery Analysis: The popliteal waveform is monophasic. Right Posterior Tibial Artery Analysis: The posterior tibial waveform is monophasic. Right Anterior Tibial Artery Analysis: The anterior tibial waveform is monophasic. Right Digits: The right digit waveform is dampened. Left Common Femoral Artery Analysis: The common femoral artery waveform is biphasic. Left Popliteal Artery Analysis: The popliteal waveform is biphasic. Left Posterior Tibial Artery Analysis: The posterior tibial waveform is monophasic. Left Anterior Tibial Artery Analysis: The anterior tibial waveform is monophasic. Left Digits: The left digit waveform is dampened. CONCLUSIONS: 1. Ankle-brachial index of 0.5-0.8 is consistent with claudication and amoderate occlusive arterial disease in the right lower extremity. 2. Ankle-brachial index of 0.5-0.8 is consistent with claudication and amoderate occlusive arterial disease in the left lower extremity. 3. There is evidence of right leg arterial insufficiency at the level of femoral-popliteal arteries. 4. There is evidence of left leg arterial insufficiency at the level offemoral-popliteal arteries. ATTESTATION: I have reviewed and interpreted the pertinent images and measurements ofthis study. I attest to the conclusions in the final report that is provided above. Electronically Signed By: Eliecer Dumont MD 05/04/2025 10:02:52 AM CDT us Silver Dumont MD IMG US PROCEDURES Final Re sult * CT Lung Cancer Screening (10/24/2024 2:53 PM DRIVER OPERATOR) Anatomical Region Laterality Modality Chest N/A Computed Tomogra phy 10/28/2024 1:52 PM DRIVER OPERATOR Narrative 10/28/2024 2:16 PM DRIVER OPERATOR EXAM DESCRIPTION: CT LUNG CANCER SCREENING REASON FOR STUDY: Screening CT of the chest in a current smoker with a 42 pack year smoking history. Additional history: None. TECHNIQUE: Low dose CT scan of the chest was performed without intravenous contrast using helical scanning technique. The exam extends from the lung apices through the lung bases. Automatic exposure control was used as a dose optimization technique. NOTE: This study was performed for the specific purposes of lung cancer screening and is not an alternative to diagnostic chest CT. RADIATION DOSE: CT dose index volume (CTDIvol) = 1.23 mGy COMPARISON: CT lung screen 10/21/2023 FINDINGS: SMOKING RELATED LUNG DISEASE: Mild apical predominant emphysema and biapical pleural-parenchymal scarring. There is bronchial wall thickening throughout, which is seen in bronchitis. LUNG NODULES: RIGHT UPPER LOBE: Unchanged 5 mm solid nodule on image 129. Unchanged 2 mm solid nodule anteriorly on image 72. RIGHT MIDDLE LOBE: none RIGHT LOWER LOBE: Unchanged 3 mm solid nodule medially on image 190. Unchanged 4 mm solid nodule in the right lower lobe on image 206. LEFT UPPER LOBE: Unchanged 3 mm solid nodule along the fissure on image 64. LEFT LOWER LOBE: Unchanged 6 mm solid nodule on image 140. CORONARY ARTERY CALCIFICATION: Severe OTHER: There is no pleural effusion or pneumothorax. The central airway is patent. Heart size is normal. No pericardial effusion or thickening. There is aneurysmal dilatation of the descending thoracic aorta measuring 3.9 x 3.7 cm, previously 3.8 x 3.7 cm. There is a large amount of calcified atherosclerotic plaque throughout the thoracic aorta as visualized. There is a small hiatal hernia. There are no enlarged mediastinal or axillary lymph nodes. Visualized portions of the upper abdomen are unremarkable. There are no suspicious osseous lesions. IMPRESSION: 1. Multiple pulmonary nodules measuring up to 6 mm are unchanged. No new pulmonary nodules. 2. Pulmonary emphysema and bronchial wall thickening consistent with bronchitis. 3. Aneurysmal dilatation of the descending thoracic aorta measures 3.9 cm, previously 3.8 cm. 4. Additional findings as above. Lung-RADS category 2S: Benign appearance or behavior. Finding other than a pulmonary nodule which is potentially clinically significant. Recommendation: Low dose Screening CT of chest in 12 months. THIS IS AN ELECTRONICALLY VERIFIED FINAL REPORT 10/28/2024 2:16 PM - Electronically signed by Oh Delacruz M.D. AM T: Report ID: [id number] Reading Location: [place] [address] Procedure Note Oh Delacruz MD - 10/28/2024 EXAM DESCRIPTION: CT LUNG CANCER SCREENING REASON FOR STUDY: Screening CT of the chest in a current smoker with a42 pack year smoking history. Additional history: None. TECHNIQUE: Low dose CT scan of the chest was performed without intravenous contrast using helical scanning technique. The exam extends from the lung apices through the lung bases. Automatic exposure control was used as adose optimization technique. NOTE: This study was performed for the specific purposes of lung cancer screening and is not an alternative to diagnostic chest CT. RADIATION DOSE: CT dose index volume (CTDIvol) = 1.23 mGy COMPARISON: CT lung screen 10/21/2023 FINDINGS: SMOKING RELATED LUNG DISEASE: Mild apical predominantemphysema and biapical pleural-parenchymal scarring. There is bronchial wallthickening throughout, which is seen in bronchitis. LUNG NODULES: RIGHT UPPER LOBE: Unchanged 5 mm solid nodule on image 129. Unchanged 2 mm solid nodule anteriorly on image 72. RIGHT MIDDLE LOBE: none RIGHT LOWER LOBE: Unchanged 3 mm solid nodule medially on image 190. Unchanged 4 mm solid nodule in the right lower lobe on image 206. LEFT UPPER LOBE: Unchanged 3 mm solid nodule along the fissure on image 64. LEFT LOWER LOBE: Unchanged 6 mm solid nodule on image 140. CORONARY ARTERY CALCIFICATION: Severe OTHER: There is no pleural effusion or pneumothorax. The central airwayis patent. Heart size is normal. No pericardial effusion or thickening.There is aneurysmal dilatation of the descending thoracic aorta measuring 3.9 x3.7 cm, previously 3.8 x 3.7 cm. There is a large amount of calcified atherosclerotic plaque throughout the thoracic aorta as visualized. Thereis a small hiatal hernia. There are no enlarged mediastinal or axillarylymph nodes. Visualized portions of the upper abdomen are unremarkable. Thereare no suspicious osseous lesions. IMPRESSION: 1. Multiple pulmonary nodules measuring up to 6 mm are unchanged. No new pulmonary nodules. 2. Pulmonary emphysema and bronchial wall thickening consistent with bronchitis. 3. Aneurysmal dilatation of the descending thoracic aorta measures 3.9cm, previously 3.8 cm. 4. Additional findings as above. Lung-RADS category 2S: Benign appearance or behavior. Finding other thana pulmonary nodule which is potentially clinically significant. Recommendation: Low dose Screening CT of chest in 12 months. THIS IS AN ELECTRONICALLY VERIFIED FINAL REPORT 10/28/2024 2:16 PM - Electronically signed by Oh Delacruz M.D. AM T: Report ID: [id number] Reading Location: [place] [address] Aruna Gutiérrez MD IMG CT PROCEDURES Final Res ult * MAMMOGRAPHY (05/12/2024 2:26 PM CDT) Historical Provider HEALTH MAINTENANCE Final Result * COLONOSCOPY (08/08/2022 2:39 PM CDT) Historical Provider HEALTH MAINTENANCE Final Result from Last 3 Months or Most Recently Relevant to Health Maintenance Insurance MEDICARE MEDICARE ON LICENSE OF [facility] Advance Directives For more information, please contact: [phone] * Full Code (Latest Code Status on File) Date Activated Date Inactivated Comments 11/25/2024 11:29 PM 11/26/2024 9:18 PM Care Teams Interior Design Project Manager Relationship Specialty Start Date End Date Rufus Dougherty MD [address] [place] [address] PCP - General Family Medicine 12/12/24 Cody Hammer MD Referring Physician Rheumatology 07/20/24 Jessica Espino MD [address] [address] Referring Physician General Surgery 07/20/24 Peter Fong MD Three [address] [address] Referring Physician Internal Medicine 07/20/24 Hoang Sanderson MD [address] [id number] Referring Physician Nephrology 07/20/24 Aruna Gutiérrez MD [address] [id number] Consulting Physician Pulmonary Disease 07/20/24 Joel Del Rosario MD [address] [place] [facility] [place] [address] Consulting Physician Vascular Surgery 07/20/24 Silver Dumont MD [address] [place] [address] Surgeon Vascular Surgery 05/31/25
--- OUTSIDE RECORDS SUMMARY | 2025-07-14 15:18 | XMS_ITS | Clinical Summary ---
Author Organization [facility] Address [facility] [place] [address] Care Team Providers Care Bag Adjuster Name Role Phone Rufus Dougherty MD Primary Care Provider [phone] Allergies Active Allergy Reactions Criticality Noted Date Comments Catalino Inhibitors Rash,Angioedema Medium 10/24/2016 Aspirin GI Upset 10/28/2021 Aspirin GI Upset Medium 10/27/2021 Azithromycin Fatigue,GI Upset Low 05/06/2023 Bempedoic Acid Other (see comment) Low 10/27/2021 Budesonide-Formoterol Fumarate Shortness of Breath High 05/06/2018 Ciprofloxacin Rash Medium 09/12/2013 Clonidine Unknown 10/24/2016 Iodine Anaphylaxis High 07/10/2021 Diazepam Unknown 04/27/2023 Diltiazem Other (see comment) 09/12/2013 Multiple symptoms Doxazosin Shortness of Breath High 10/24/2016 Confusion, Wheezing Evolocumab Other (see comment) Low 06/11/2021 Ezetimibe Myalgias Medium 07/10/2020 Fish Oil Myalgias 04/23/2024 Fluconazole Other (see comment) Medium 10/02/2019 Reaction: severe reaction to other medications,. Formoterol Shortness of Breath High 11/15/2023 Hydralazine Unknown 10/24/2016 Hydrochlorothiazide Dizziness,Other (see comment),Unknown Low 09/12/2013 Dizziness Iodinated Contrast Media Other (see comment) High Other reaction(s): sensitive Neomycin-Bacitracin Zn-Polymyx Rash,Swelling,Conta ct Dermatitis High 02/01/2019 Olmesartan GI Upset Low 10/24/2016 Prednisone Anxiety High 11/15/2023 Propranolol Unknown 05/06/2018 Sertraline Anxiety,Vomiting,Ot her (see comment) High 10/24/2016 Tingling, Burning Reaction: Neuro problems, Statins Other (see comment) Low 02/01/2019 Muscles burning and bone and back pain Sulfa Antibiotics Unknown 10/24/2016 Sulfamethoxazole-Trimethopr im Hives High 04/27/2023 Telithromycin Other (see comment) Low 09/12/2013 Visual disturbance Trimethoprim Rash Medium 10/02/2019 Medications amLODIPine (NORVASC) 5 MG tablet Take 1 tablet (5 mg total) by mouth daily. Active montelukast (SINGULAIR) 10 MG tablet Take 1 tablet (10 mg total) by mouth nightly at bedtime. 2 Active Telmisartan 80 MG Tab Take 80 mg by mouth every morning. 2 Active famotidine (PEPCID) 20 MG tablet Take 1 tablet (20 mg total) by mouth nightly at bedtime. Active telmisartan (MICARDIS) 40 MG tabletIndications :Essential (primary) hypertension Take 1 tablet (40 mg total) by mouth every evening. 3 Active albuterol sulfate HFA 108 (90 Base) MCG/ACT inhaler Inhale 2 puffs into the lungs every 6 (six) hours as needed for Shortness of breath. 3 Active Cholecalciferol (VITAMIN D3 OR) Take 1 capsule by mouth daily. Active magnesium oxide (MAG-OX) 400 (240 Mg) MG tablet Take 1 tablet (400 mg total) by mouth daily. Active Bacillus Coagulans-Inulin (PROBIOTIC) 1-250 BILLION-MG Cap Take 1 tablet by mouth daily. Active acetaminophen (TYLENOL) 500 MG tablet Take 1 tablet (500 mg total) by mouth every 6 (six) hours as needed for Pain. Active Menaquinone-7 (VITAMIN K2 OR) Take 1 capsule by mouth daily. Active Active Problems Problem Noted Date Diagnosed Date Polymyalgia rheumatica ([facility]) 05/03/2024 Dehydration 04/23/2024 Vitamin D deficiency 11/24/2023 SIADH (syndrome of inappropriate ADH production) ([facility]) 11/24/2023 Hyponatremia 04/28/2023 Gastroesophageal reflux disease without esophagi tis 04/21/2022 Arteriosclerosis of coronary artery 06/12/2021 Essential (primary) hypertension 06/12/2021 Hypertriglyceridemia 06/12/2021 Atherosclerosis of [place] of extremities with intermittent claudication, unspecified extremity 06/11/2021 Dysthymia 12/12/2020 Intermittent claudication of both lower extremities due to atherosclerosis 12/03/2020 Overview (07/14/2023): Last Assessment & Plan: Impression: Nondisabling claudication of both lower extremities noted on lower extremity arterial Doppler studies performed today in office. She has evidence of moderate distal ischemia both lower extremities with no complaint of disabling claudication or ischemic rest pain. Plan: No surgical intervention currently needed. Recommend ongoing risk factor modifications and follow-up in 1 year for re-evaluation and repeat lower extremity arterial Doppler surveillance. Last Assessment & Plan: Impression: Chronic lower extremity arterial occlusive disease. Patient complaining of worsening foot pain over the past month with no new surveillance imaging performed over the past 12 months. Plan: Will further evaluate patient's compliant with lower extremity arterial Doppler surveillance. Patient follow-up in 1 month for re-evaluation and discussion of test results. Abnormal cardiovascular stress test 11/29/2020 Edema 11/29/2020 Smoker 09/16/2020 Dyslipidemia 09/07/2020 Left carotid artery stenosis 03/17/2019 Chronic obstructive pulmonary disease (CMS/HCC H HS/HCC) 04/14/2018 Dyspnea on exertion 10/24/2016 Resolved Problems Problem Noted Date Diagnosed Date Resolved Date Diverticulitis 04/14/2018 11/24/2023 Immunizations Immunization Administration Dates Next Due COVID-19 Vaccine (Generic) 02/01/2021 Influenza (FluMist) 07/23/2020 Influenza (Generic) 07/26/2020, 6,10/03/2015,2014,09/04/2014,08/29/2013 Influenza Adult (Generic) 08/24/2023,,08/20/2021,2018,08/13/2018,08/18/2017,08/22/2015 [email or web address] (SiteBrand) COVID-19 AD26 VACCINE 0.5 ML IM SUSP 02/18/2021 Pneumococcal (Pneumovax 23) 09/08/2017 Pneumococcal (Prevnar 13) 09/15/2016,06/16/2016 Tdap (Generic) 12/22/2020 Social History Tobacco Use Types Packs/Day Years Used Date Smoking Tobacco: Every Day Cigarettes 1 62.2 Started: 05/03/1963 Passive Smoke Exposure: Current Smokeless Tobacco: Never Tobacco Cessation:Ready to Q uit: No; Counseling Given: Yes Alcohol Use Standard Drinks/Week Comments Never 0 (1 standard drink = 0.6 oz pur e alcohol) B1300 Health Literacy Answer Date Recor ded How often do you need to hav e someone help you when you read instructions, pamphlets, or other written material from your doctor or pharmacy? Never 04/23/2024 [facility] Utilities Answer Date Recorded In the past 12 months has e [employer], gas, oil, or water [employer] threatened to shut off services in your [...] 04/23/2024 How often do you attend chur or hindu services? Never 04/23/2024 Do you belong to any clubs o r organizations such as moravian groups, unions, fraternal or athletic groups, or [...] Patient Health Questionnaire-2 Score 2 11/24/2023 [facility] - Occupational Stress Questionnaire Answer Date [...] place to sleep or slept in a alf (including now)? Patient refused 05/03/2023 Housing Stability [...] any time in the past 12 m [facility], were you homeless or living in a alf (including now)? No 04/23/2024 Comments No Sex and Gender Information Value Date Recorded Sex Assigned at Not on file Legal Sex Female 7:37 PM CDT Gender Identity Not on file Sexual Orientation Not on file Last Filed Vital Signs Vital Sign Reading Time Taken Comments Blood Pressure 150/60 03/08/2025 12:50 PM CDT Pulse 89 03/08/2025 12:50 PM CDT Temperature 37 C (98.6 F) 07/27/2024 1:47 PM CDT Respiratory Rate 20 07/27/2024 5:00 PM CDT Oxygen Saturation 97% 09/07/2024 12:49 PM BUFFING WHEEL OPERATOR Inhaled Oxygen Concentration - - Weight 60.8 kg (134 lb) 03/08/2025 12:50 PM CDT Height 154.9 cm (5' 1) 03/08/2025 12:50 PM CDT Body Mass Index 25.32 03/08/2025 12:50 PM CDT Plan of Treatment Upcoming Encounters Date Type Department Care Team (Late st Contact Info) Description 09/13/2025 1:30 PM BUFFING WHEEL OPERATOR Office Visit [facility] [place] [address] [place], [place] [id number] Vilma Moore FNP [address] [facility] [place] [address] [place], [place] [id number] Health Maintenance Due Date Last Done Comments ASCVD LDL 1950 Hepatitis C 1968 Zoster Vaccines (1 of 2) 2000 Annual Medicare Wellness Visit 2015 Dexa Scan (General) 2015 PHQ-2 (Physician Fletcher) 10/26/2024 11/24/2023 RSV Immunization or 60+ Years (1 - 1-dose 75+ series) 2025 COVID-19 Vaccine ( season) 2025 02/18/2021, 02/01/2021, 02/01/2021 Lung Cancer Screening 11/25/2025 11/25/2024, 022 DTaP, Tdap and Td Vaccines (2 - Td or Tdap) 12/22/2030 12/22/2020 Colorectal Cancer Screening Colonoscopy (10 Years) 10/08/2032 10/08/2022 Pneumococcal Vaccine: 50+ Years Completed 09/08/2017, 09/15/2016, 06/16/2016 AAA SCREENING Completed 11/25/2024, 04/25, 02/10/2024, Additional history exists Meningococcal B Vaccine Aged Out No l onger eligible based on patient's age to complete this topic Meningococcal Vaccine Aged Out No kt evi eligible based on patient's age to complete this topic RSV Immunizations Under 20 Months Aged Out No longer eligible based on patient's age to complete this topic Goals Goal Patient Goal Type Associated Problems Recent Progress Patient-Stated? Author Family - family caregiver with be involved in care transitions and discharge planning Lifestyle No Rashmi Melendez, MUSEUM TOUR GUIDE Procedures Procedure Name Priority Date/Time Associated Diagnosis Comments CT ABD+PEL WO CON STAT 05/04/2024 11: 22 AM CDT COLONOSCOPY/EGD GENERIC (SCAN ORDER) 10/08/2022 from Last 3 Months or Most Recently Relevant to Health Maintenance Results * CT ABD+PEL WO CON (05/04/2024 11:22 AM CDT) Anatomical Region Laterality Modality Abdomen Computed Tomogra phy 05/04/2024 11:4 3 AM CDT Impressions 05/04/2024 12:17 PM CDT IMPRESSION: 1. No apparent bowel obstruction or acute focal inflammation. Colonic diverticulosis with chronic thickening of the sigmoid colon. Stable infraumbilical ventral hernia with protruding small bowel loop but no associated bowel dilation or wall thickening. Small hiatal hernia. 2. Stable dilation of the distal thoracic aorta and proximal abdominal aorta. Stable lobulation of the distal abdominal aorta. 3. No acute urinary tract obstruction or focal inflammation. Hysterectomy. 4. Cholecystectomy. Stable left adrenal thickening and nodularity is incompletely evaluated on noncontrast imaging. Ordered By: WOODY HO Interpreted By: Selvin Hook, 05/04/2024 11:43 AM Narrative 05/04/2024 12:17 PM CDT IMAGING STUDIES: CT ABD+PEL WO CON DATE: 05/04/2024 11:14 AM HISTORY: Abdominal pain, acute, nonlocalized 74-year-old female. Abdominal pain. Dark stool and increased weakness since last night. Correlate one episode of hard black stool. Nausea. Recent admission for hyponatremia. COMPARISON: Chest portable 04/23/2024. CT abdomen and pelvis without contrast 02/10/2024. DISCUSSION: CT abdomen and pelvis without intravenous contrast. Coronal and sagittal reconstructions. No enteric contrast. Automated exposure control with radiation dose reduction techniques were used. CHEST: Mild scarring in the lung bases. No acute infiltrate or consolidation in the lung bases. CARDIOVASCULAR: Heart size is normal. No pericardial effusion. Atherosclerotic calcification of the aorta, aortic branch arteries, iliac arteries, and femoral arteries. Aneurysmal dilation of the distal thoracic aorta of approximately 3.6 cm diameter. Dilation of the upper abdominal aorta of approximately 3 cm diameter in the region of the celiac artery and superior mesenteric artery origins. Lobulation of the infrarenal abdominal aorta of up to approximately 2.5 cm diameter. UPPER ABDOMEN: Cholecystectomy. No apparent biliary ductal dilation. No apparent acute hepatic abnormality given limitations of noncontrast study. Atrophic pancreas. Stable bilateral adrenal gland thickening. Left adrenal low density nodularity is stable from 02/10/2024 and may be due to adenomas but incompletely evaluated on noncontrast imaging. Splenic granulomas. GENITOURINARY: Stable mild bilateral perinephric stranding. No hydronephrosis. No renal collecting system, ureter, or urinary bladder calcification. Mild to moderately distended urinary bladder with no bladder wall thickening. Hysterectomy. No pelvic mass. LYMPHATIC: No apparent pathologic adenopathy given limitations of noncontrast study. GASTROINTESTINAL: Small hiatal hernia (3 cm transverse dimension and 3 cm craniocaudal dimension). Diverticulosis throughout the colon but most prominent in the sigmoid colon and descending colon. Chronic thickening in the sigmoid colon. No appreciable acute diverticulitis. Stable hernia in the midline pelvic wall containing non-thickened loop of small bowel (axial image 90 and sagittal image 55). No apparent bowel obstruction or acute focal inflammation. No acute appendicitis. Mild density within the appendix. No free fluid in the abdomen or pelvis. MUSCULOSKELETAL: Mild leftward curvature of the lumbar spine. Degenerative changes of the spine, pelvis, and hips. Procedure Note Selvin Hook MD - 05/04/2024 IMAGING STUDIES: CT ABD+PEL WO CONDATE: 05/04/2024 11:14 AM HISTORY: Abdominal pain, acute, nonlocalized 74-year-old female.Abdominal pain. Dark stool and increased weakness since last night.Correlate one episode of hard black stool. Nausea. Recent admission forhyponatremia. COMPARISON: Chest portable 04/23/2024. CT abdomen and pelvis withoutcontrast 02/10/2024. DISCUSSION: CT abdomen and pelvis without intravenous contrast. Coronal and sagittalreconstructions. No enteric contrast. Automated exposure control withradiation dose reduction techniques were used. CHEST: Mild scarring in the lung bases. No acute infiltrate orconsolidation in the lung bases. CARDIOVASCULAR: Heart size is normal. No pericardial effusion.Atherosclerotic calcification of the aorta, aortic branch arteries, iliacarteries, and femoral arteries. Aneurysmal dilation of the distal thoracicaorta of approximately 3.6 cm diameter. Dilation of the upper abdominalaorta of approximately 3 cm diameter in the region of the celiac arteryand superior mesenteric artery origins. Lobulation of the infrarenalabdominal aorta of up to approximately 2.5 cm diameter. UPPER ABDOMEN: Cholecystectomy. No apparent biliary ductal dilation. Noapparent acute hepatic abnormality given limitations of noncontrast study.Atrophic pancreas. Stable bilateral adrenal gland thickening. Left adrenallow density nodularity is stable from 02/10/2024 and may be due to adenomasbut incompletely evaluated on noncontrast imaging. Splenic granulomas. GENITOURINARY: Stable mild bilateral perinephric stranding. Nohydronephrosis. No renal collecting system, ureter, or urinary bladdercalcification. Mild to moderately distended urinary bladder with nobladder wall thickening. Hysterectomy. No pelvic mass. LYMPHATIC: No apparent pathologic adenopathy given limitations ofnoncontrast study. GASTROINTESTINAL: Small hiatal hernia (3 cm transverse dimension and 3 cmcraniocaudal dimension). Diverticulosis throughout the colon but mostprominent in the sigmoid colon and descending colon. Chronic thickening inthe sigmoid colon. No appreciable acute diverticulitis. Stable hernia inthe midline pelvic wall containing non-thickened loop of small bowel(axial image 90 and sagittal image 55). No apparent bowel obstruction or acute focal inflammation. No acuteappendicitis. Mild density within the appendix. No free fluid in theabdomen or pelvis. MUSCULOSKELETAL: Mild leftward curvature of the lumbar spine. Degenerativechanges of the spine, pelvis, and hips. IMPRESSION: 1. No apparent bowel obstruction or acute focal inflammation. Colonicdiverticulosis with chronic thickening of the sigmoid colon. Stableinfraumbilical ventral hernia with protruding small bowel loop but noassociated bowel dilation or wall thickening. Small hiatal hernia. 2. Stable dilation of the distal thoracic aorta and proximal abdominalaorta. Stable lobulation of the distal abdominal aorta. 3. No acute urinary tract obstruction or focal inflammation.Hysterectomy. 4. Cholecystectomy. Stable left adrenal thickening and nodularity isincompletely evaluated on noncontrast imaging. Ordered By: WOODY HO Interpreted By: Selvin Hook, 05/04/2024 11:43 AM Woody Ho MD CT Final Result * COLONOSCOPY/EGD GENERIC (SCAN ORDER) (10/08/2022) 10/08/2022 [facility] Scanned SCANNING Final Resu lt from Last 3 Months or Most Recently [place] [address] MEDICARE [facility] Advance Directives * Full Code (Latest Code Status on File) Date Activated Date Inactivated Comments 04/23/2024 2:44 PM 04/25/2024 1:43 PM * Full Code Date Activated Date Inactivated Comments 05/03/2023 4:40 PM 05/05/2023 12:25 PM * Full Code Date Activated Date Inactivated Comments 04/28/2023 1:57 AM 04/29/2023 1:50 PM Care Teams Bag Adjuster Relationship Specialty Start Date End Date Rufus Dougherty MD [address] [place] [id number] PCP - General FAMILY PRACTICE 12/20/24
--- OUTSIDE RECORDS SUMMARY | 2025-07-14 15:18 | XMS_ITS | Clinical Summary ---
Author Organization [facility] Address [address] [place] [address] Phone Care Team Providers Care Acid Retort Operator Name Role Phone Mellissa Quispe MD Primary Care Provider Allergies Active Allergy Reactions Criticality Noted Date Comments Ciprofloxacin Rash Low 09/12/2013 Diltiazem Hcl Other (See Comments) 09/12/2013 Multiple symptoms Hydrochlorothiazide Dizziness Low 09/12/2013 Sulfamethoxazole-Trimethopr im Hives High 09/12/2013 Telithromycin Other (See Comments) 09/12/2013 Visual disturbance Unclassified Drug Swelling Low 09/12/2013 Medications VENTOLIN HFA 90 mcg/actuation HFA inhaler 4 Active doxazosin (CARDURA) 2 mg tablet 4 Active levocetirizine (XYZAL) 5 mg tablet 4 Active LEVOTHYROXINE 88 mcg Oral tablet 4 Active montelukast (SINGULAIR) 10 mg tablet 4 Active BENICAR 40 mg tablet 4 Active MULTIVIT &MINERALS/FERR OUS FUM (MULTI VITAMIN ORAL) Take by mouth. A ctive estradiol (VAGIFEM) 10 mcg tablet Insert 1 Tab (10 mcg) vaginally see administration instructions Insert 1 tab vaginally 3 times weekly. 36 Tab 3 5 Active ranitidine (ZANTAC) 150 mg tablet Take 150 mg by mouth 2 times daily. Active metroNIDAZOLE (METROGEL) 0.75 % vaginal gel Insert 1 Applicator vaginally daily at bedtime. 70 Gram 0 6 Active clindamycin phosphate (CLEOCIN) 2 % Cream Insert 1 Applicator vaginally daily X 7. 40 Gram 0 6 Active Active Problems Patient Care Coordination No te Formatting of this note migh t be different from the original. Primary Care: Jenny Guerin Referring Provider: Lorenzo Carreno MD [address] [address] [place] [address] Other: Problem Noted Date Diagnosed Date History of rib fracture 04/18/2015 Degenerative disc disease 04/18/2015 Fibromyalgia 04/18/2015 Mastodynia 04/18/2015 Resolved Problems Problem Noted Date Diagnosed Date Resolved Date Lump of breast, left 04/05/2015 015 Immunizations Immunization Administration Dates Next Due Influenza Seasonal Unspecified Formulation IM Family History Medical History Relation Name Comments Cancer Brother squamous cell Heart Disease Father Hypertension Maternal Grandmother Cancer Mother myloma-multiple Hypertension Mother Relation Name Status Comments Brother Father Maternal Grandmother Mother Social History Tobacco Use Types Packs/Day Years Used Date Smoking Tobacco: Every Day Cigarettes 0.5 54 Tobacco Cessation:Ready to Q uit: Yes Alcohol Use Standard Drinks/Week Comments Yes 0 (1 standard drink = 0.6 oz pur e alcohol) daily Comments No Sex and Gender Information Value Date Recorded Sex Assigned at Not on file Legal Sex Female 3:23 PM CDT Gender Identity Not on file Sexual Orientation Not on file Occupation Industry Job Start Date Job End Date Not on file Not on file Not on file Not on file Last Filed Vital Signs Vital Sign Reading Time Taken Comments Blood Pressure 120/62 04/18/2015 12:42 PM CDT Pulse 79 04/18/2015 12:42 PM CDT Temperature - - Respiratory Rate - - Oxygen Saturation - - Inhaled Oxygen Concentration - - Weight 69.4 kg (153 lb) 04/18/2015 12:42 PM CDT Height 156.2 cm (5' 1.5) 04/18/2015 12:42 PM CD T Body Mass Index 28.44 04/18/2015 12:42 PM CDT Plan of Treatment Health Maintenance Due Date Last Done Comments DTAP/TDAP/TD VACCINES (1 - Tdap) 1969 PNEUMOCOCCAL VACCINE 50+ YEA RS (1 of 2 - PCV) 1969 FIT-DNA Q 3 years 1995 FIT/FOBT Q 1 year 1995 Flex Sig/CT Colonography Q 5 years 1995 ZOSTER VACCINE (1 of 2) 2000 OSTEOPOROSIS SCREENING 2015 COLORECTAL SCREENING 07/26/2023 07/26/2013 (Previously completed) Colorectal Cancer Screening 07/26/2023 RSV VACCINE (60+ or ) (1 - 1-dose 75+ series) 2025 INFLUENZA VACCINE (#1) 2025 08/29/2013 Insurance MEDICARE PART A AND B MEDICARE PART A AND B BCBS SUPP Care Teams Acid Retort Operator Relationship Specialty Start Date End Date Mellissa Quispe MD PCP - General Family Practice 04/11/16
--- OUTSIDE RECORDS SUMMARY | 2025-07-14 15:18 | XMS_ITS | Encounter Summary ---
Author Organization [facility] Address [address], [place] [address] Phone Care Team Providers Care S3B Multi Sensor Operator Name Role Phone El Gomes MD Primary Care Provider [phone] Reason for Visit * Reason Comments Med Refill Encounter Details Date Type Department Care Team (Late st Contact Info) Description 07/07/2022 Refill [facility] Nephrology and Hypertension [address] [facility] [facility], [address] [facility] [place] [address] Hoang Sanderson MD [address] [facility] [facility], [address] [place] [address] Social History Tobacco Use Types Packs/Day Years Used Date Smoking Tobacco: Every Day Smokeless Tobacco: Never Alcohol Use Standard Drinks/Week Comments No 0 (1 standard drink = 0.6 oz pur e alcohol) Comments Unknown Sex and Gender Information Value Date Recorded Sex Assigned at Not on file Legal Sex Female 8:28 AM [facility] Gender Identity Not on file Sexual Orientation Not on file documented as of this encounter Plan of Treatment Not on file documented as of this encounter Visit Diagnoses Not on filedocumented in this encounter Care Teams S3B Multi Sensor Operator Relationship Specialty Start Date End Date El Gomes MD PCP - General Internal Medicine 02/20/21 documented as of this encounter
--- OUTSIDE RECORDS SUMMARY | 2025-07-14 15:18 | XMS_ITS | Clinical Summary ---
Author Organization [facility] Address [address], [place] [address] Phone Care Team Providers Care Logger All Round Name Role Phone El Gomes MD Primary Care Provider [phone] Allergies Active Allergy Reactions Criticality Noted Date Comments Catalino Inhibitors Edema,Rash Medium 11/15/2020 Rash Aspirin reflux Low 10/27/2021 Other reaction(s): Stomach upset Bempedoic Acid 10/27/2021 Budesonide-Formoterol Fumarate Shortness of breath High 05/06/2018 Cat Dander Runny nose 05/06/2018 Cefuroxime Diarrhea 05/06/2018 Cephalexin 10/02/2019 Ciprofloxacin Diazepam Diltiazem Doxazosin Shortness of breath High 05/06/2018 Confusion, Wheezing Evolocumab Other (see comments) Low 06/11/2021 Ezetimibe Myopathy Medium 07/10/2020 Fluconazole Other (see comments) Medium 10/02/2019 Reaction: severe reaction to other medications, Hydralazine Unknown 05/06/2018 Hydrochlorothiazide Iodinated Contrast Media High 07/09/2021 Other reaction(s): sensitive Neomycin-Bacitracin Zn-Polymyx Swelling High 02/01/2019 Other reaction(s): Blisters Olmesartan Other (see comments) 05/06/2018 GI Symptoms Pravastatin muscle pain Medium 10/09/2020 Rosuvastatin 06/11/2021 Sulfamethoxazole-Trimethopri m Telithromycin Other (see comments) 09/12/2013 Other reaction(s): Other (see Comments) Visual disturbance Visual disturbance Trimethoprim Rash Medium 10/02/2019 Reaction: Rash, Medications melatonin 3 MG tablet 1 tab/cap qhs 3 Active montelukast (SINGULAIR) 10 MG tablet 1 tab/cap qday 3 Active doxazosin (CARDURA) 2 MG tablet TAKE ONE TABLET BY MOUTH AT BEDTIME 5 7 Active Turmeric 500 MG capsule Take by mouth daily Active Probiotic capsule Rx: Probiotic - Capsule Active fluticasone HFA (FLOVENT HFA) 110 MCG/ACT inhaler Inhale 2 puffs 2 times daily 9 Active fluticasone (FLONASE) 50 MCG/ACT nasal spray Administer 2 sprays into affected nostril(s) daily 9 Active albuterol HFA (PROAIR HFA) 108 (90 Base) MCG/ACT inhaler ProAir HFA 90 mcg/actuation aerosol inhaler 4 Active Cholecalcifero l (VITAMIN D3) 125 MCG (5000 UT) tablet Active ezetimibe (ZETIA) 10 MG tablet Take 10 mg by mouth 1 (one) time each day 0 Active clopidogrel (PLAVIX) 75 MG tablet Take 75 mg by mouth 1 (one) time each day 1 Active colestipol (COLESTID) 1 g tablet TAKE 2 TABLETS BY MOUTH IN THE MORNING FOR 30 DAYS 1 Active fenofibrate (TRICOR) 54 MG tablet TAKE 1 TABLET BY MOUTH ONCE DAILY AT BEDTIME FOR 90 DAYS 1 Active Inositol 500 MG tablet Take by mouth Active rosuvastatin (CRESTOR) 5 MG tablet rosuvastatin 5 mg tablet Active Icosapent Ethyl 1 g capsule 1 Active levothyroxine (SYNTHROID) 25 MCG tablet 1 Active pantoprazole (PROTONIX) 40 MG EC tablet 1 Active predniSONE (DELTASONE) 2.5 MG tablet Take 7.5 mg by mouth 1 (one) time each day 1 Active Vit-Fe Fumarate-FA (M- Plus) 27-1 MG tablet 1 Active Evolocumab (Repatha SureClick) 140 MG/ML solution auto-injector Repatha SureClick 140 mg/mL subcutaneous pen injector INJECT 1 ML (140 MG TOTAL) UNDER THE SKIN EVERY 2 WEEKS. Active Hydrocortisone , Perianal, (Procto-Med HC) 2.5 % cream Procto-Med HC 2.5 % topical cream perineal applicator APPLY A THIN LAYER TO THE AFFECTED AREA(S) 2 3 TIMES DAILY Active Lifitegrast (Xiidra) 5 % solution Xiidra 5 % eye drops in a dropperette INSTILL 1 DROP INTO BOTH EYES BY OPHTHALMIC ROUTE 2 TIMES PER DAY APPROXIMATELY 12 HOURS APART Active magnesium oxide (MAG-OX) 400 MG tablet magnesium oxide 400 mg (241.3 mg magnesium) tablet 9 Active ergocalciferol (VITAMIN D-2) 1.25 MG (24671 UT) capsule ergocalciferol (vitamin D2) 1,250 mcg (50,000 unit) capsule 9 Active famotidine (PEPCID) 10 MG tablet Take 10 mg by mouth 2 times daily Active amLODIPine (NORVASC) 5 MG tablet Take 1 tablet by mouth once daily 30 tablet 11 2 Active telmisartan (MICARDIS) 80 MG tablet Take 1 tablet by mouth once daily 90 tablet 3 2 Active lansoprazole (PREVACID) [address] capsule 1 capsule in the morning. Active Umeclidinium-V ilanterol (Anoro Ellipta) 62.5-25 MCG/ACT aerosol powder Inhale 1 puff in the morning. 2 Active Active Problems Problem Noted Date Diagnosed Date Gastro-esophageal reflux disease without esophag itis 04/21/2022 Sinusitis 04/21/2022 Restrictive lung disease 04/07/2022 Simple chronic bronchitis 04/07/2022 Chronic low back pain 11/19/2021 Chronic thoracic back pain 11/19/2021 History of placement of stent for coronary arter y disease 11/05/2021 Polyp of colon 10/27/2021 Paresthesia 10/08/2021 Folate deficiency anemia 07/31/2021 Overview (09/05/2021): neg b12 Atherosclerosis of [place] of extremities with intermittent claudication 06/11/2021 Attention deficit hyperactivity disorder 021 Exposure to severe acute respiratory syndrome co ronavirus 06/11/2021 Hyponatremia 06/11/2021 Liver function tests abnormal 06/11/2021 Occlusion and stenosis of bilateral carotid leidy [place] 06/11/2021 Overview (09/05/2021): had cea follows with surgeion for duplex had cea follows with surgeion for duplex Overweight 06/11/2021 Tobacco dependence, continuous 06/11/2021 Polyarthropathy 05/15/2021 Hemorrhoid 03/06/2021 Easy bruising 01/07/2021 Dysthymia 12/13/2020 History of cholecystectomy 12/13/2020 Irregular bowel habits 12/13/2020 Intermittent claudication of bilateral lower limbs co-occurrent and due to atherosclerosis 12/03/2020 Overview (02/20/2021): Last Assessment & Plan: Impression: Nondisabling claudication [...] and repeat lower extremity arterial Doppler surveillance. Cardiovascular stress test abnormal 11/29/2020 Cervical radiculopathy 11/29/2020 Edema 11/29/2020 Pain in left leg 11/29/2020 Coronary atherosclerosis 11/19/2020 Hypomagnesemia 10/02/2020 Idiopathic hypercalcemia 10/02/2020 Mixed hypercholesterolemia and hypertriglyceride shira 10/02/2020 Vitamin D deficiency 09/17/2020 Dyslipidemia 09/07/2020 Dyspnea on exertion 09/07/2020 Tobacco user 09/07/2020 Unequal blood pressure in arms 09/07/2020 Left carotid artery stenosis 03/17/2019 Multinodular goiter 02/15/2019 Postablative hypothyroidism 02/15/2019 Air trapping 02/01/2019 Allergic rhinitis 02/01/2019 Multiple nodules of lung 06/08/2018 Chronic cough 05/13/2018 Genetic disorder carrier 05/13/2018 Nicotine dependence 05/13/2018 Posttraumatic stress disorder 05/13/2018 Overview (10/02/2019): Overview: FRANCIS - Generalized anxiety disorder Chronic obstructive pulmonary disease 04/14/2018 Diverticulitis 04/14/2018 Increased alpha>1< globulin 04/14/2018 Malignant hypertension 04/14/2018 Osteoporosis 04/14/2018 Fibromyalgia 06/11/2016 Idiopathic osteoarthritis 06/11/2016 Disease type AND/OR category unknown 02/13/2016 Overview (02/20/2021): Overview: Degenerative disc disease Degenerative disc disease Diverticula of intestine 02/13/2016 Overview (02/20/2021): Overview: Diverticulosis Diverticulosis Other specified anxiety disorders 01/09/2016 Degeneration of intervertebral disc 04/18/2015 H/O: fracture 04/18/2015 Mastodynia 04/18/2015 Peripheral vascular disease 09/20/2013 Obstructive sleep apnea 09/17/2013 Hypothyroidism 09/17/2013 Essential (primary) hypertension 09/17/2013 Migraine, not intractable, without status migrai nosus 09/17/2013 Immunizations Immunization Administration Dates Next Due Influenza LAIV (Nasal) 07/23/2020,08/18/2017 Influenza Split High Dose Pr eservative Free IM 08/19/2019,08/13/2018,08/22/2015 Influenza TIV (IM) 09/15/2016, 5,11/29/2014,09/04,08/29/2013 Influenza, Injectable, Quadrivalent 07/23/2020,1 Influenza, Injectable, Quadr ivalent, Preservative Free 08/20/2021 Influenza, Quadrivalent 07/23/2020,08/18/2017 Pneumococcal Conjugate 13-Valent 09/15/2016,05/27 Pneumococcal Polysaccharide 09/08/2017 Sars-cov-2, Unspecified 02/01/2021 Tdap 12/22/2020 Family History Medical History Relation Comments Coronary arteriosclerosis Father Cerebrovascular accident Mother Malignant neoplastic disease Mother Coronary arteriosclerosis Relative Diabetes mellitus Sibling Malignant neoplastic disease Sibling Kidney disease Neg Hx Kidney stone Neg Hx Relation Status Comments Father Mother Relative Sibling Social History Tobacco Use Types Packs/Day Years Used Date Smoking Tobacco: Every Day Smokeless Tobacco: Never Tobacco Cessation:Ready to Q uit: No; Counseling Given: Yes Alcohol Use Standard Drinks/Week Comments No 0 (1 standard drink = 0.6 oz pur e alcohol) Comments Unknown Sex and Gender Information Value Date Recorded Sex Assigned at Not on file Legal Sex Female 8:28 AM [facility] Gender Identity Not on file Sexual Orientation Not on file Last Filed Vital Signs Vital Sign Reading Time Taken Comments Blood Pressure 138/74 09/03/2022 11:13 AM GEOLOGY SCIENTIST Pulse - - Temperature 36.3 C (97.4 F) 09/03/2022 11:13 AM GEOLOGY SCIENTIST Respiratory Rate 18 09/03/2022 11:13 AM GEOLOGY SCIENTIST Oxygen Saturation - - Inhaled Oxygen Concentration - - Weight 65.3 kg (144 lb) 09/03/2022 11:13 AM GEOLOGY SCIENTIST Height 157.5 cm (5' 2) 09/03/2022 11:13 AM GEOLOGY SCIENTIST Body Mass Index 26.34 09/03/2022 11:13 AM GEOLOGY SCIENTIST Plan of Treatment Health Maintenance Due Date Last Done Comments Influenza Vaccine (#1) 2025 , 07/23/2020, 08/18/2017, Additional history exists Pneumococcal PPSV23/PCV13 65 + Years / Low and Medium Risk Completed 09/08/2017, 09/15/2016, 06/16/2016 Insurance [facility] MEDICARE [facility] Care Teams Logger All Round Relationship Specialty Start Date End Date El Gomes MD PCP - General Internal Medicine 02/20/21
--- OUTSIDE RECORDS SUMMARY | 2025-07-14 15:18 | XMS_ITS | Clinical Summary ---
Author Organization [facility] Address [address] [place] [address] Phone Care Team Providers Care Marine Welder Name Role Phone Jessica Espino MD Unavailable Mira Vazquez APRN, FOOD SCIENTIST Primary Care Provider + Allergies Active Allergy Reactions Criticality Noted Date Comments Catalino Inhibitors Unknown 05/06/2018 Amlodipine Besylate Unknown 05/06/2018 Aspirin Other (see Comments) Low 10/27/2021 Other reaction(s): Stomach upset Olmesartan Other (see Comments) 05/06/2018 GI Symptoms Cat Dander Runny Nose 05/06/2018 Cefuroxime Axetil Diarrhea 05/06/2018 Ciprofloxacin Rash 05/06/2018 Clonidine Hcl Unknown 05/06/2018 Diazepam Unknown 04/27/2023 Diltiazem Hcl Other (see Comments) 09/12/2013 Multiple symptoms Doxazosin Shortness of Breath 05/06/2018 Confusion, Wheezing Evolocumab Other (see Comments) Low 06/11/2021 Ezetimibe Other (see Comments) Medium 07/10/2020 Fluconazole Other (see Comments) Medium 10/02/2019 Reaction: severe reaction to other medications, Reaction: severe reaction to other medications, Hydralazine Unknown 10/24/2016 Hydralazine Hcl Unknown 05/06/2018 Hydrochlorothiazide Other (see Comments) 05/06/2018 Dizziness Telithromycin Other (see Comments) 05/06/2018 Visual disturbance Other Swelling High 05/06/2018 STEROIDS Pravastatin Other (see Comments) Medium 10/09/2020 Propranolol Hcl Unknown 05/06/2018 Sulfamethoxazole-Trimethopr im Hives 05/06/2018 Sertraline Hcl Other (see Comments) 05/06/2018 Tingling, Burning Sulfamethoxazole Rash Medium 12/30/2022 Reaction: Rash, Budesonide-Formoterol Fumarate Shortness of Breath 05/06/2018 Trimethoprim Rash Medium 10/02/2019 Reaction: Rash, Reaction: Rash, Wasp Venom Swelling 05/06/2018 Medications telmisartan (MICARDIS) 80 MG Tablet 80 mg. 8 Active Cholecalciferol (VITAMIN D3) 62116 UNIT Capsule Take by mouth daily. Active Multiple Vitamins-Minera ls (MULTIVITAMIN PO) Take by mouth daily. Active Turmeric 500 MG Capsule Take by mouth daily. Active fluticasone (FLONASE) 50 MCG/ACT Suspension 2 Sprays by Nasal route daily. Use in each nostril as directed. Active Montelukast Sodium (SINGULAIR PO) Take by mouth. Active amLODIPine (NORVASC) 5 MG Tablet amlodipine 5 mg tablet 0 Active lansoprazole (PREVACID) 15 MG CAPSULE DELAYED RELEASE lansoprazole 15 mg capsule,delayed release Take 1 capsule every day by oral route in the morning for 90 days. Active famotidine (PEPCID) 10 MG Tablet Take by mouth. Activ e albuterol 108 (90 Base) MCG/ACT Aerosol Solution 4 Active aspirin 81 MG Chewable Tablet 0 Active clopidogrel (PLAVIX) 75 MG Tablet Take 75 mg by mouth. 0 Active clotrimazole (LOTRIMIN) 1 % Cream clotrimazole 1 % topical cream APPLY TO THE AFFECTED AND SURROUNDING AREAS OF SKIN BY TOPICAL ROUTE 2 TIMES PER DAY IN THE MORNING AND EVENING Active colestipol (COLESTID) 1 GM Tablet 1 Active doxazosin (CARDURA) 2 MG Tablet doxazosin 2 mg tablet 4 Active doxycycline hyclate (VIBRAMYCIN) 100 MG Capsule Activ e Lifitegrast (Xiidra) 5 % Solution Active losartan (COZAAR) 25 MG Tablet losartan 25 mg tablet TAKE 1 TABLET BY MOUTH ONCE DAILY Active magnesium oxide (MAG-OX) 400 MG Tablet magnesium oxide 400 mg (241.3 mg magnesium) tablet 9 Active metroNIDAZOLE (METROGEL) 0.75 % Gel 1 Applicator by Vaginal route. 6 Active melatonin 3 MG Tablet Take by mouth. 3 Active Neomycin-Colist -HC-Thonzonium (Cortisporin-TC ) 3.3-3-10-0.5 MG/ML Suspension Active nystatin-triamc inolone (MYCOLOG II) 998660-4.1 UNIT/GM-% Cream Acti ve Olmesartan Medoxomil 40 MG Tablet 4 Active pravastatin (PRAVACHOL) 10 MG Tablet Active Vit-Fe Fumarate-FA (M- Plus) 27-1 MG Tablet M- Plus 27 mg iron- 1 mg tablet 0 Active Probiotic Product ([facility] Intestinal Yovana Regulat) Capsule Rx: Probiotic - Capsule Active raNITIdine (ZANTAC) 150 MG Tablet Take 150 mg by mouth. Active rosuvastatin (CRESTOR) 5 MG Tablet Active Umeclidinium-Vi lanterol (Anoro Ellipta) 62.5-25 MCG/ACT AEROSOL POWDER, BREATH ACTIVATED take 1 Puff by inhalation. 2 Active triamcinolone (KENALOG) 0.1 % Ointment 2 Active neomycin-polymy josette-hydrocortis one (CORTISPORIN) 3.5-63689-3 Suspension neomycin-polymyx in-hydrocort 3.5 mg-10,000 unit/mL-1 % ear drops,susp INSTILL 4 DROPS INTO AFFECTED EAR(S) THREE TIMES DAILY Active Inositol 500 MG Tablet Take by mouth. Activ e Icosapent Ethyl 1 g Capsule Vascepa 1 gram capsule Take 2 capsules twice a day by oral route with meals for 90 days. 1 Active Hydrocortisone, Perianal, 2.5 % Cream Procto-Med HC 2.5 % topical cream perineal applicator APPLY A THIN LAYER TO THE AFFECTED AREA(S) 2 3 TIMES DAILY Active fluticasone (FLONASE) 50 MCG/ACT Suspension 2 Sprays by Nasal route. 9 Active Evolocumab (Repatha SureClick) 140 MG/ML Solution Auto-injector Repatha SureClick 140 mg/mL subcutaneous pen injector INJECT 1 ML (140 MG TOTAL) UNDER THE SKIN EVERY 2 WEEKS. Active aspirin EC 81 MG Tablet Delayed Response Take 81 mg by mouth. 3 Active telmisartan (MICARDIS) 40 MG Tablet Take 40 mg by mouth daily. 3 Active montelukast (SINGULAIR) 10 MG Tablet Take 10 mg by mouth nightly. 3 Active sodium chloride 1 GM Tablet Take 1 g by mouth 3 times daily. Active ondansetron (Zofran) 4 MG Tablet Take 4 mg by mouth every 8 hours as needed. Active Active Problems Problem Noted Date Diagnosed Date Postablative hypothyroidism 02/15/2019 Multinodular goiter 02/15/2019 High blood pressure 02/15/2019 Generalized anxiety disorder 09/26/2015 Immunizations Immunization Administration Dates Next Due Covid-19 Vaccine, Vector-nr, [id number], Pf, 0.5 Ml ([employer]/V Wave&V Wave) 02/18/2021 Influenza Vaccine Nasal 07/23/2020,08/18/2017 Influenza Vaccine Quadrivalent Nasal 07/23/2020, 08/18/2017 Influenza Vaccine, Quadrivalent, PF 08/24/2023,1 ,08/20/2021 Influenza, Injectable, Quadrivalent 07/23/2020,1 ,08/18/2017 Influenza, Recombinant, Quadrivalent,injectable, Pf 07/26/2020 Influenza, Seasonal, Injecta ble, Undefined 09/15/2016,10/03/2015,11/29/2014,2013,08/29/2013 Influenza, high-dose, trivalent, PF 08/19/2019,1 ,08/22/2015 Influenza,Split Virus,Trivalent,Injectable,PF 08/23/2024 Pneumococcal Vaccine - 13 Valent 09/15/2016,05/27 Pneumococcal Vaccine Adult - 23 Valent 09/08/2017 Sars-cov-2 (Covid-19) Vaccin e, Unspecified 02/01/2021 TDAP Vaccine 12/22/2020,12/22/2020 Family History Medical History Relation Name Comments Cancer Brother Alcohol Abuse Father Asthma Father Depression Father Heart Disease Father Hypertension Mother Thyroid Cancer Mother Thyroid Disease Mother Heart Disease Sister 1 Hypertension Sister 1 Thyroid Disease Sister 1 Alpha-1 Antitrypsin Deficiency Sister 2 Relation Name Status Comments Brother Father PTSD, Mother Sister 1 Alive Sister 2 Alive Social History Tobacco Use Types Packs/Day Years Used Date Smoking Tobacco: Every Day Cigarettes Smokeless Tobacco: Never Tobacco Cessation:Ready to Q uit: Not Asked; Counseling Given: Not Answered Alcohol Use Standard Drinks/Week Comments No 0 (1 standard drink = 0.6 oz pur e alcohol) Sexually Active Control Partners Comments Not Currently Comments No Sex and Gender Information Value Date Recorded Sex Assigned at Female 06/08/2023 7:46 AM CDT Legal Sex Female 11:08 PM CDT Gender Identity Female 06/08/2023 7:46 AM CDT Sexual Orientation Not on file Last Filed Vital Signs Vital Sign Reading Time Taken Comments Blood Pressure 132/82 02/07/2025 11:11 AM CDT Pulse 78 02/07/2025 11:11 AM CDT Temperature 36.7 C (98 F) 02/07/2025 11:11 AM CDT Respiratory Rate 20 02/07/2025 11:11 AM CDT Oxygen Saturation 98% 02/07/2025 11:11 AM CDT Inhaled Oxygen Concentration - - Weight 59.9 kg (132 lb) 02/07/2025 11:11 AM CDT Height 158.8 cm (5' 2.5) 10/07/2023 1:15 PM FOUNTAIN VENDING MECHANIC Body Mass Index 23.76 10/07/2023 1:15 PM FOUNTAIN VENDING MECHANIC Plan of Treatment Health Maintenance Due Date Last Done Comments DEXA Bone Density 1950 Hepatitis C Virus (HCV) Screening 1950 Cologuard 1995 Immunochemical Fecal Occult Blood 1995 Zoster Immunization (1 of 2) 2000 Colonoscopy 12/06/2022 12/06/2012 Colorectal Cancer Screening 12/06/2022 Respiratory Syncytial Virus (RSV) Immunization (Adult) (1 - 1-dose 75+ series) 2025 Influenza Immunization (#1) 06/26/202507/27, 08/24/2023, 08/20/2022, Additional history exists SARS-COV-2 Immunization ( - season) 2025 02/18/2021, 02/01/2021 Td Immunization Every 10 Years (Adults With 1 Tdap) 12/22/2030 12/22/2020, 12/22/2020 Mammogram Discontinued 04/18/2015, 09/13/2014 Pneumococcal Immunization (50+ years) Completed 09/08/2017, 09/15/2016, 06/16/2016 Pneumococcal Immunization Combined Discontinued 09/08/2017, 09/15/2016, 06/16/2016 DTaP/Tdap/Td Immunization Discontinued 12/22/2020, Hepatitis B Immunization Aged Out No longer eligible based on patient's age to complete this topic Human Papillomavirus (HPV) Immunization Aged Out No longer eligible based on patient's age to complete this topic Meningococcal Immunization (ACWY) Aged Out No longer eligible based on patient's age to complete this topic Rotavirus Immunization Aged Out No lo nger eligible based on patient's age to complete this topic Procedures Procedure Name Priority Date/Time Associated Diagnosis Comments COLONOSCOPY Routine 12/06/2012 from Last 3 Months or Most Recently Relevant to Health Maintenance Results * COLONOSCOPY (12/06/2012) Priyank Cannon DO PROCEDURE/MINOR SURGICAL ORDERA BLES Final Result from Last 3 Months or Most Recently Relevant to Health Maintenance Insurance MEDICARE [facility] Care Teams Marine Welder Relationship Specialty Start Date End Date Mira Vazquez APRN, MARY KATE [facility] [place], [place] [id number] PCP - General Family Medicine 01/26/24 Jessica Espino MD [address] [address] Consulting Physician Endocrinology 06/24/22
== END 2025-07-14 15:14 | disposition home or self-care (01) ==
PROVIDERS: PCP Family Medicine
DX: Z01.818 Encounter for other preprocedural examination (principal)
CPT/HCPCS: 71046